=== PATIENT | female | born 1935 | race Caucasian/White ===

== ENCOUNTER 2025-05-17 12:22 | Inpatient (IN) | payer MEDICARE, BC, SELFPAY ==
[2025-05-17] VITALS (14 sets, daily range): BP systolic 70–147; BP diastolic 38–102; PULSE 82–117; RESP 12–28; TEMP 36.3–36.4; O2SAT 98–100; BMI 38.6
--- NOTE | ~2025-05-17 | XR_ITS ---
EXAMINATION: XR chest 1V portable 05/17/2025 15:30 INDICATION: Leukocytosis PROCEDURE: AP portable chest COMPARISON: No prior studies for comparison. FINDINGS: The lungs are clear. The cardiomediastinal silhouette is within normal limits. There are no pleural effusions. There is no pneumothorax suspected. IMPRESSION: 1: NO ACUTE CARDIOPULMONARY DISEASE. Reviewed, dictated and finalized at location O. [facility]
--- NOTE | 2025-05-17 13:39 | ED.GENADULT ---
HPI - General Adult General Chief complaint: GI Bleed Stated complaint: N/V/D Time Seen by Provider: 05/17/25 13:03 History of Present Illness HPI narrative: 89-year-old female presented to the emergency department for evaluation for suspected hematemesis and upper GI bleed causing melena. Patient was thought to have some dark emesis and patient did have some reported melena stool at the care facility. Patient has no prior history of GI bleed. Patient is not on any blood thinners. Patient does have advanced dementia. Patient does complain of some intermittent abdominal pain. Patient had no abdominal tenderness to palpation. family confirms that the patient is DNI DNR. Related Data Home Medications ?Medication ?Instructions ?Recorded ?Confirmed ?Last Taken ?Type acetaminophen 325 mg capsule 650 mg PO Q6H PRN pain 05/17/25 05/17/25 Unknown History acetaminophen 650 mg 650 mg PO BID 05/17/25 05/17/25 05/17/25 History tablet,extended release (8 Hour Pain Reliever) amlodipine 5 mg tablet 5 mg PO DAILY 05/17/25 05/17/25 05/17/25 History aspirin 81 mg capsule 81 mg PO DAILY 05/17/25 05/17/25 05/17/25 History bumetanide 0.5 mg tablet 0.5 mg PO DAILY 05/17/25 05/17/25 05/17/25 History calcium carbonate (Calcium 600) 600 mg PO BID 05/17/25 05/17/25 05/16/25 History cetirizine 10 mg tablet (All Day 10 mg PO DAILY 05/17/25 05/17/25 05/17/25 History Allergy (cetirizine)) cyanocobalamin (vitamin B-12) 500 500 mcg PO DAILY 05/17/25 05/17/25 05/17/25 History mcg tablet (B-12 DOTS) ergocalciferol (vitamin D2) 1,250 1,250 mcg PO WEEKLY 05/17/25 05/17/25 Unknown History mcg (50,000 unit) capsule levetiracetam 500 mg tablet 500 mg PO BID 05/17/25 05/17/25 05/17/25 History (Keppra) loperamide 2 mg tablet 2 mg PO Q3H PRN loose stool 05/17/25 05/17/25 Unknown History (Anti-Diarrheal (loperamide)) meclizine 12.5 mg tablet 12.5 mg PO BID 05/17/25 05/17/25 05/17/25 History meloxicam 15 mg tablet 15 mg PO DAILY 05/17/25 05/17/25 05/17/25 History metoprolol succinate 25 mg 25 mg PO BID 05/17/25 05/17/25 05/17/25 History tablet,extended release 24 hr nystatin 100,000 unit/gram topical 1 applic topical BID 05/17/25 05/17/25 Unknown History powder (Nystop) ondansetron 4 mg disintegrating 4 mg PO Q6H PRN nausea and vomiting 05/17/25 05/17/25 Unknown History tablet potassium chloride 10 mEq 20 meq PO DAILY 05/17/25 05/17/25 05/17/25 History capsule,extended release simvastatin 10 mg tablet 10 mg PO HS 05/17/25 05/17/25 05/16/25 History Allergies Allergy/AdvReac Type Severity Reaction Status Date / Time Penicillins Allergy Intermediate Unknown Verified 05/17/25 17:35 phenytoin Allergy Unknown Unknown Verified 05/17/25 17:35 propoxyphene Allergy Unknown Unknown Verified 05/17/25 17:35 Review of Systems Review of Systems: All systems reviewed & are unremarkable except as noted in HPI and below PMFSH Social History Social History Smoking status: Never smoker Alcohol intake: former Substance use: former Spiritual care concerns: Yes (Orthodox/Any Worder) Exam Narrative: APPEARANCE: Well appearing, no pain, no distress, well-nourished. HEAD: normocephalic, atraumatic. EYES: PERRLA/EOMI, conjunctivae clear. NOSE: Normal no drainage EARS:TMS clear with good light reflex. THROAT: Pharynx clear, no exudate. NECK: Supple. No adenopathy, no masses. RESPIRATORY: Airway patent, respirations nonlabored. Clear to auscultation bilaterally, no rales, rhonchi, wheezing. CARDIOVASCULAR: Regular rate and rhythm without murmurs rubs or gallops. ABDOMINAL: Soft, nontender, nondistended, normal bowel sounds MUSCULOSKELETAL: Moves all extremities. Strength/ROM intact, No edema, No calf tenderness. NEURO: Alert. Cranial nerves II through XII intact. Good gait. Good coordination SKIN: Warm, dry. Normal Color rectal exam: Hemoccult positive Course Vital Signs Vital signs: Vital Signs Temperature 97.6 F 05/17/25 12:20 Pulse Rate 82 05/17/25 12:20 Respiratory Rate 20 05/17/25 12:20 Blood Pressure 116/61 05/17/25 12:20 Pulse Oximetry 100 05/17/25 12:20 Oxygen Delivery Room Air 05/17/25 12:20 Temperature 97.6 F 05/17/25 12:20 Pulse Rate 111 H 05/17/25 18:31 Respiratory Rate 21 H 05/17/25 18:31 Blood Pressure 102/38 L 05/17/25 16:40 Pulse Oximetry 98 05/17/25 18:31 Oxygen Delivery Room Air 05/17/25 18:31 MDM MDM Narrative Medical decision making narrative: 89-year-old female presented emergency department for evaluation for work for did hematemesis and melena stool. Patient was Hemoccult positive and did have dark tarry stool on exam. Family states the patient is DNI DNR. Family declined a CT scan to look for active extravasation. They felt that the CT scan would be too stressful on the patient. Patient is family is unsure if they would want to transfuse the patient if she had a low hemoglobin. And family does not think that they would pursue endoscopy. after further discussion family states they do not wish to pursue endoscopy. They do not wish to pursue a transfusion if needed. They felt if the patient did worsen overnight and had worsening bleeding or worsening vitals or worsening hemoglobin that they would pursue comfort care. At this time patient will be treated with IV Protonix. I did discuss the case with GI and since no endoscopy is anticipated he stated he will not need to be consult at this point. I will discuss the case with the hospitalist and they will consult GI as needed. Differential Diagnosis Differential Diagnosis: upper GI bleed, lower GI bleed, anemia, colitis, gastritis, diverticulitis Lab Data MDM Lab Attestation statement: I personally reviewed the patient's lab results. 05/17/25 18:13 05/17/25 13:30 Labs: Lab Results 05/17/25 Range/Units 13:30 WBC 14.3 H (4.5-10.0) K/mm3 RBC 3.24 L (4.2-5.4) M/mm3 Hgb 9.0 L (12.0-15.0) g/dL Hct 29.4 L (37.0-47.0) % MCV 90.7 (80-100) fl MCH 27.8 (26-34) pg MCHC 30.6 L (32-36) g/dl RDW 17.0 H (11.5-14.5) % Plt Count 287 (150-375) k/mm3 MPV 10.0 (7.4-10.4) fl Immature Gran % (Auto) 0.9 H (0-0.5) % Neut % (Auto) 76.3 H (45.5-73.1) % Lymph % (Auto) 14.9 L (18.3-44.2) % Kimball % (Auto) 7.2 (2.6-8.5) % Eos % (Auto) 0.4 (0-4.4) % Baso % (Auto) 0.3 (0.2-1.2) % Lymph # (Auto) 2.13 (0.9-3.2) K/mm3 Kimball # (Auto) 1.0 H (0.1-0.6) K/mm3 Eos # (Auto) 0.1 (0-0.3) K/mm3 Baso # (Auto) 0.1 (0.0-0.1) K/mm3 Abs Immat Gran (auto) 0.13 H (0.00-0.031) K/mm3 Absolute Neuts (auto) 10.9 H (1.3-6.7) K/mm3 Absolute Nucleated RBC 0.000 (0.0-0.012) K/mm3 Nucleated RBC % 0.0 (0.0-0.2) % PT 15.7 H (11.1-14.7) Seconds INR 1.3 APTT 26.0 (22.3-36.8) Seconds Sodium 139 (137-145) mmol/L Potassium 5.2 H (3.4-5.0) mmol/L Chloride 108 H (98-107) mmol/L Carbon Dioxide 25 (22-30) mmol/L Anion Gap 6 (4-12) mmol/L BUN 69 H (7-17) mg/dL Creatinine 1.09 H (0.7-1.0) mg/dL Estim Creat Clear Calc 40 ml/min Estimated GFR 47 L (59 - ) Glucose 120 H (65-110) mg/dL Calcium 9.2 (8.4-10.2) mg/dL Total Bilirubin 0.6 (0.2-1.3) mg/dL AST 20 (14-36) U/L ALT 13 (6-35) U/L Alkaline Phosphatase 66 (38-126) U/L Total Protein 6.0 L (6.3-8.2) g/dL Albumin 3.3 L (3.5-5.1) g/dL Blood Type O Positive Antibody Screen Negative Imaging Data Radiologist's impression: ITS Impressions Chest X-Ray 05/17/25 15:33 IMPRESSION: 1: NO ACUTE CARDIOPULMONARY DISEASE. Discharge Plan Discharge Clinical Impression: GI bleed Patient Disposition: Still a Patient Condition: Serious
[2025-05-17 13:49] LABS: Hematocrit 29.4 % (37.0-47.0); Hemoglobin 9.0 g/dL (12.0-15.0); Immature Granulocyte Percent A 0.9 % (0-0.5); Lymphocytes Absolute Auto 2.13 K/mm3 (0.9-3.2); Mean Corpuscular HGB Conc 30.6 g/dl (32-36); Mean Corpuscular Hemoglobin 27.8 pg (26-34); Mean Corpuscular Volume 90.7 fl (80-100); Nucleated Red Blood Cells Absolute Auto 0.000 K/mm3 (0.0-0.012); Nucleated Red Blood Cells Perc 0.0 % (0.0-0.2); Platelet Count Result 287 k/mm3 (150-375); Red Blood Count 3.24 M/mm3 (4.2-5.4); White Blood Count 14.3 K/mm3 (4.5-10.0)
[2025-05-17 14:03] LABS: INR 1.3; Partial Thromboplastin Time 26.0 Seconds (22.3-36.8); Prothrombin Time 15.7 Seconds (11.1-14.7)
[2025-05-17 14:20] LABS: Alanine Aminotransferase 13 U/L (6-35); Albumin Level 3.3 g/dL (3.5-5.1); Alkaline Phosphatase 66 U/L (38-126); Anion Gap 6 mmol/L (4-12); Aspartate Amino Transferase 20 U/L (14-36); Bilirubin,Total 0.6 mg/dL (0.2-1.3); Blood Urea Nitrogen 69 mg/dL (7-17); Calcium 9.2 mg/dL (8.4-10.2); Carbon Dioxide 25 mmol/L (22-30); Chloride 108 mmol/L (98-107); Estimated CRCL calculation 40 ml/min; Estimated Glomerular Filt Rate 47; Glucose 120 mg/dL (65-110); Potassium 5.2 mmol/L (3.4-5.0); Sodium 139 mmol/L (137-145); Total Protein 6.0 g/dL (6.3-8.2)
[2025-05-17] MEDS: PANTOPRAZOLE SODIUM IV 40 MG VIAL IV PUSH ×2 (14:38→21:17)
--- OUTSIDE RECORDS SUMMARY | 2025-05-17 14:55 | XMS_ITS ---
Author Name Auto Generated, Auto Generated Organization [facility] Address [address] [place] [address] Care Team Providers Care Quality Control Director Name Role Phone León Sawyer Primary Physician [phone] Allergies and Intolerances Name Onset Reaction Severity penicillin 2016-03-23 01:18:00 Darvon 2016-03-23 01:18:00 Darvocet-N 2016-03-23 01:18:00 Dilantin 2016-03-23 01:18:00 Care Team Name Role NPI Start Date León Sawyer Primary Physician [phone] 00:00:00 Encounters Admissions Program Name Primary Diagnosis Admission Date Discharg e Date Assisted Living Area Metabolic encephalopathy 09:30:00 [facility] 2024-10-14 00:00:00 2024-12-03 22:00:00 [facility] 2025-04-06 00:00:00 Past Medical History Active Concerns Problem Code Start Date End Date Essential (primary) hypertension Essential (primary) hypertension 2016-03-22 00:00:00 2020-12-22 00:00:00 Unspecified dementia, unspecified severity, without behavioral disturbance, psychotic disturbance, mood disturbance, and anxiety Unspecified dementia, unspecified severity, without behavioral disturbance, psychotic disturbance, mood disturbance, and anxiety 2016-03-22 00:00:00 2023-05-08 00:00:00 Weakness Weakness 2016-04-24 00:00:00 2020-12-22 00:00:00 Epidemic vertigo Epidemic vertigo 2016-03-22 00:00:00 2016-03-22 00:00:00 Other seizures Other seizures 2016-03-22 00:00:00 2016-03-22 00:00:00 Chronic atrial fibrillation Chronic atrial fibri llation 2016-03-22 00:00:00 2019-02-23 00:00:00 Anxiety disorder, unspecified Anxiety disorder, unspecified 2016-03-22 00:00:00 2023-01-10 00:00:00 Hyperlipidemia, unspecified Hyperlipidemia, unsp ecified 2016-03-22 00:00:00 Unspecified osteoarthritis, unspecified site Unspecified osteoarthritis, unspecified site 2016-03-22 00:00:00 2020-12-22 00:00:00 Vitamin D deficiency, unspecified Vitamin D deficiency, unspecified 2016-03-22 00:00:00 Difficulty in walking, not elsewhere classified Difficulty in walking, not elsewhere classified 2016-04-27 00:00:00 2020-12-22 00:00:00 Cognitive communication deficit Cognitive communication deficit 2016-04-24 00:00:00 2020-12-22 00:00:00 Unspecified symptoms and signs involving cognitive functions and awareness Unspecified symptoms and signs involving cognitive functions and awareness 2016-04-24 00:00:00 2020-12-22 00:00:00 Asymptomatic varicose veins of unspecified lower extremity Asymptomatic varicose veins of unspecified lower extremity 2016-03-22 00:00:00 2020-12-22 00:00:00 [facility] (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 2016-03-22 00:00:00 Benign paroxysmal vertigo, unspecified ear Benign paroxysmal vertigo, unspecified ear 2016-03-22 00:00:00 Epilepsy, unspecified, not intractable, without status epilepticus Epilepsy, unspecified, not intractable, without status epilepticus 2016-03-22 00:00:00 Benign neoplasm of meninges, unspecified Benign neoplasm of meninges, unspecified 2016-03-22 00:00:00 Ventricular tachycardia Ventricular tachycardia 2016-03-22 00:00:00 2020-12-22 00:00:00 Repeated falls Repeated falls 2016-03-22 00:00:00 2020-12-22 00:00:00 Chronic atrial fibrillation, unspecified Chronic atrial fibrillation, unspecified 2019-02-24 00:00:00 2020-12-22 00:00:00 Encounter for immunization Encounter for immuniz ation 2019-03-13 00:00:00 2020-12-22 00:00:00 Supraventricular tachycardia Supraventricular tachycardia 2016-03-22 00:00:00 2020-12-22 00:00:00 Acute sinusitis, unspecified Acute sinusitis, unspecified 2019-07-30 00:00:00 2020-12-22 00:00:00 Other seasonal allergic rhinitis Other seasonal allergic rhinitis 2019-07-30 00:00:00 Generalized anxiety disorder Generalized anxiety disorder 2016-03-22 00:00:00 2025-04-27 00:00:00 Other persistent atrial fibrillation Other persistent atrial fibrillation 2019-02-24 00:00:00 Allergic rhinitis, unspecified Allergic rhinitis, unspecified 2016-03-22 00:00:00 2020-12-22 00:00:00 Localized edema Localized edema 2016-03-22 00:00:00 2020-12-22 00:00:00 Venous insufficiency (chronic) (peripheral) Venous insufficiency (chronic) (peripheral) 2016-03-22 00:00:00 Asymptomatic varicose veins of bilateral lower extremities Asymptomatic varicose veins of bilateral lower extremities 2016-03-22 00:00:00 Dysuria Dysuria 2016-03-22 00:00:00 2020-12-22 00:00:00 COVID-19 COVID-19 2019-12-15 00:00:00 2020-09-30 00:00:00 Contact with and (suspected) exposure to other viral communicable diseases Contact with and (suspected) exposure to other viral communicable diseases 2019-11-24 00:00:00 2020-12-22 00:00:00 Personal history of COVID-19 Personal history of COVID-19 2020-05-27 00:00:00 Hypokalemia Hypokalemia 2020-09-29 00:00:00 Chronic kidney disease, stage 3a Chronic kidney disease, stage 3a 2020-02-25 00:00:00 Deficiency of other specified B group vitamins Deficiency of other specified B group vitamins 2016-03-22 00:00:00 Adverse effect of unspecified drugs, medicaments and biological substances, subsequent encounter Adverse effect of unspecified drugs, medicaments and biological substances, subsequent encounter 2016-03-22 00:00:00 Primary generalized (osteo)arthritis Primary generalized (osteo)arthritis 2016-03-22 00:00:00 Hypertensive chronic kidney disease 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, or unspecified chronic kidney disease Hypertensive chronic kidney disease 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, or unspecified chronic kidney disease 2016-03-22 00:00:00 2021-12-25 00:00:00 Hypertensive heart and chronic kidney disease without heart failure, 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, or unspecified chronic kidney disease Hypertensive heart and chronic kidney disease without heart failure, 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, or unspecified chronic kidney disease 2016-03-22 00:00:00 Hypocalcemia Hypocalcemia 2016-03-22 00:00:00 Other disorders of plasma-protein metabolism, 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, not elsewhere classified 2016-03-22 00:00:00 Anemia, unspecified Anemia, unspecified 00:00:00 Unsteadiness on feet Unsteadiness on feet 02-15 00:00:00 2024-02-17 00:00:00 COVID-19 COVID-19 2023-05-04 00:00:00 2024-02-17 00:00:00 Unspecified dementia, unspecified severity, with anxiety Unspecified dementia, unspecified severity, with anxiety 2022-02-24 00:00:00 Metabolic encephalopathy Metabolic encephalopath y 2016-03-22 00:00:00 Impetigo, unspecified Impetigo, unspecified 2023 00:00:00 Localized edema Localized edema 2024-04-18 00:00:00 Immunizations Name Date Status ELVIE 2025-03-16 05:00:00 Completed NMEXSPIKE 2025-03-17 05:00:00 Completed Medications Medication Instructions Start Date End Date ALPRAZolam 0.5 mg tablet 0.5 mg TABLET O ral PRN 3 Times Daily for 14 Days Indication: Anxiety 2024-05-20 22:00:00 2024-06-03 21:59:00 ondansetron 4 mg disintegrating tablet 4mg TABLET,DISINTEGRATING Oral PRN Every 6 Hours Indication: nausea/vomiting 2024-06-25 16:00:00 Anti-Diarrheal (loperamide) 2 mg tablet 2mg TABLET Oral PRN (Max 8 Doses) Indication: diarrhea 2024-06-25 16:00:00 bumetanide 0.5 mg tablet 0.5 mg TABLET O ral 1 Time Daily Indication: CHF/edema 2024-08-27 20:47:00 furosemide 20 mg tablet 20mg TABLET Oral 1 Time Daily for 5 Days Indication: elevated BNP 2024-09-30 05:00:00 2024 04:59:00 Nystop 100,000 unit/gram topical powder DIRECTED POWDER (GRAM) Topical 2 Times Daily Indication: redness apply to red areas under breasts and abdominal folds BID 2024-12-28 12:26:00 furosemide 20 mg tablet 20 mg TABLET Ora l 1 Time Daily for 10 Days Indication: edema 2025-01-26 19:51:00 2025-02-05 19:50:00 Bion Tears (PF) 0.1 %-0.3 % drops in a dropperette 1 drop 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, 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 4 Times Daily for 7 Days Indication: eye irritation 2025-02-04 12:00:00 2025-02-11 11:59:00 acetaminophen 325 mg tablet 2 TABLETS TA BLET Oral PRN Every 4 Hours Indication: pain per standing ordersdo not exceed more than 4000mg in any 24 hour period 2025-02-15 12:00:00 Problems Active Concerns Problem Code Start Date End Date Text Hyperlipidemia, unspecified Hyperlipidemia, unspecified 2016-03-22 00:00:00 Vitamin D deficiency, unspecified Vitamin D deficiency, unspecified 2016-03-22 00:00:00 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 [facility] (current) use of aspirin 2016-03-22 00:00:00 Benign paroxysmal vertigo, unspecified ear Benign paroxysmal vertigo, unspecified ear 2016-03-22 00:00:00 Epilepsy, unspecified, not intractable, without status epilepticus Epilepsy, unspecified, not intractable, without status epilepticus 2016-03-22 00:00:00 Benign neoplasm of meninges, unspecified Benign neoplasm of meninges, unspecified 2016-03-22 00:00:00 Other seasonal allergic rhinitis Other seasonal allergic rhinitis 2019-07-30 00:00:00 Generalized anxiety disorder Generalized anxiety disorder 2016-03-22 00:00:00 2025-04-27 00:00:00 Other persistent atrial fibrillation Other persistent atrial fibrillation 2019-02-24 00:00:00 Venous insufficiency (chronic) (peripheral) Venous insufficiency (chronic) (peripheral) 2016-03-22 00:00:00 Asymptomatic varicose veins of bilateral lower extremities Asymptomatic varicose veins of bilateral lower extremities 2016-03-22 00:00:00 Personal history of COVID-19 Personal history of COVID-19 2020-05-27 00:00:00 Hypokalemia Hypokalemia 2020-09-29 00:00:00 Chronic kidney disease, stage 3a Chronic kidney disease, stage 3a 2020-02-25 00:00:00 Deficiency of other specified B group vitamins Deficiency of other specified B group vitamins 2016-03-22 00:00:00 Adverse effect of unspecified drugs, medicaments and biological substances, subsequent encounter Adverse effect of unspecified drugs, medicaments and biological substances, subsequent encounter 2016-03-22 00:00:00 Primary generalized (osteo)arthritis Primary generalized (osteo)arthritis 2016-03-22 00:00:00 Hypertensive heart and chronic kidney disease without heart failure, 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, or unspecified chronic kidney disease Hypertensive heart and chronic kidney disease without heart failure, 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, or unspecified chronic kidney disease 2016-03-22 00:00:00 Hypocalcemia Hypocalcemia 2016-03-22 00:00:00 Other disorders of plasma-protein metabolism, 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, not elsewhere classified 2016-03-22 00:00:00 Anemia, unspecified Anemia, unspecified 00:00:00 Unspecified dementia, unspecified severity, with anxiety Unspecified dementia, unspecified severity, with anxiety 2022-02-24 00:00:00 Metabolic encephalopathy Metabolic encephalopath y 2016-03-22 00:00:00 Impetigo, unspecified Impetigo, unspecified 2023 00:00:00 Localized edema Localized edema 2024-04-18 00:00:00 Other abnormalities of gait and mobility Other abnormalities of gait and mobility 2024-10-14 00:00:00 Unsteadiness on feet Unsteadiness on feet 10-14 00:00:00 Weakness Weakness 2024-10-14 00:00:00 Localized swelling, mass and lump, left upper limb Localized swelling, mass and lump, left upper limb 2025-01-27 00:00:00 Other symptoms and signs involving the musculoskeletal system Other symptoms and signs involving the musculoskeletal system 2025-04-06 00:00:00 Pain in left knee Pain in left knee 2025-04-06 00:00:00 Muscle weakness (generalized) Muscle weakness (generalized) 2025-04-06 00:00:00 Other fatigue Other fatigue 2025-04-06 00:00:00 Need for assistance with personal care Need for assistance with personal care 2025-04-06 00:00:00 Social History Observation Description Date Sex Female 1935 00:00 :00 Sex Female Vital Signs Vital Sign Measurement Date Systolic blood pressure 163.0 mm[Hg] 18:56:04 Diastolic blood pressure 80.0 mm[Hg] 2025-04 18:56:04 Heart Rate 70.0 /min 2025-05-16 00:56 :04 Systolic blood pressure 130.0 mm[Hg] 10:50:40 Diastolic blood pressure 72.0 mm[Hg] 2025-04 10:50:40 Heart Rate 64.0 /min 2025-05-15 16:50 :40 Systolic blood pressure 128.0 mm[Hg] 20:38:00 Diastolic blood pressure 70.0 mm[Hg] 2025-04 20:38:00 Heart Rate 88.0 /min 2025-05-15 02:38 :00 Systolic blood pressure 125.0 mm[Hg] 10:10:44 Diastolic blood pressure 81.0 mm[Hg] 2025-04 10:10:44 Pulse Oximetry 94.0 % 2025-05-12 10:10 :44 Body weight 246.0 [lb_av] 2025-05-12 16:10 :44 Heart Rate 58.0 /min 2025-05-12 16:10 :44 Body temperature 96.9 [degF] 2025-05-12 16:1 0:44 Respiratory rate 16.0 /min 2025-05-12 16:1 0:44 Systolic blood pressure 137.0 mm[Hg] 11:35:07 Diastolic blood pressure 74.0 mm[Hg] 2025-04 11:35:07 Heart Rate 68.0 /min 2025-05-07 17:35 :07 Systolic blood pressure 113.0 mm[Hg] 19:04:06 Diastolic blood pressure 60.0 mm[Hg] 2025-04 19:04:06 Heart Rate 72.0 /min 2025-05-01 01:04 :06 Systolic blood pressure 114.0 mm[Hg] 10:49:09 Diastolic blood pressure 62.0 mm[Hg] 2025-04 10:49:09 Heart Rate 75.0 /min 2025-04-30 16:49 :09 Systolic blood pressure 152.0 mm[Hg] 20:10:21 Diastolic blood pressure 81.0 mm[Hg] 2025-04 20:10:21 Pulse Oximetry 97.0 % 2025-04-27 20:10 :21 Body weight 245.0 [lb_av] 2025-04-28 02:10 :21 Heart Rate 66.0 /min 2025-04-28 02:10 :21 Body temperature 97.4 [degF] 2025-04-28 02:1 0:21 Respiratory rate 18.0 /min 2025-04-28 02:1 0:21 Body height 66.0 [in_i] 2025-04-28 00:34 :18 Systolic blood pressure 144.0 mm[Hg] 17:27:02 Diastolic blood pressure 62.0 mm[Hg] 2025-03 17:27:02 Heart Rate 62.0 /min 2025-04-23 23:27 :02 Systolic blood pressure 150.0 mm[Hg] 18:06:10 Diastolic blood pressure 82.0 mm[Hg] 2025-03 18:06:10 Heart Rate 72.0 /min 2025-04-17 00:06 :10 Systolic blood pressure 129.0 mm[Hg] 18:25:25 Diastolic blood pressure 84.0 mm[Hg] 2025-03 18:25:25 Pulse Oximetry 92.0 % 2025-04-11 18:25 :25 Body weight 239.6 [lb_av] 2025-04-12 00:25 :25 Heart Rate 63.0 /min 2025-04-12 00:25 :25 Body temperature 98.2 [degF] 2025-04-12 00:2 5:25 Respiratory rate 18.0 /min 2025-04-12 00:2 5:25 Systolic blood pressure 134.0 mm[Hg] 18:17:12 Diastolic blood pressure 78.0 mm[Hg] 2025-03 18:17:12 Heart Rate 66.0 /min 2025-04-10 00:17 :12 Systolic blood pressure 143.0 mm[Hg] 12:17:59 Diastolic blood pressure 71.0 mm[Hg] 2025-03 12:17:59 Heart Rate 73.0 /min 2025-04-09 18:17 :59 Systolic blood pressure 139.0 mm[Hg] 17:58:16 Diastolic blood pressure 75.0 mm[Hg] 2025-03 17:58:16 Heart Rate 68.0 /min 2025-04-02 23:58 :16 Systolic blood pressure 129.0 mm[Hg] 10:34:42 Diastolic blood pressure 64.0 mm[Hg] 2025-03 10:34:42 Heart Rate 67.0 /min 2025-04-02 16:34 :42 Systolic blood pressure 108.0 mm[Hg] 20:22:13 Diastolic blood pressure 61.0 mm[Hg] 2025-03 20:22:13 Heart Rate 69.0 /min 2025-03-30 02:22 :13 Systolic blood pressure 137.0 mm[Hg] 18:53:22 Diastolic blood pressure 69.0 mm[Hg] 2025-03 18:53:22 Pulse Oximetry 96.0 % 2025-03-28 18:53 :22 Body weight 241.0 [lb_av] 2025-03-29 00:53 :22 Heart Rate 62.0 /min 2025-03-29 00:53 :22 Body temperature 97.0 [degF] 2025-03-29 00:5 3:22 Respiratory rate 18.0 /min 2025-03-29 00:5 3:22 Systolic blood pressure 108.0 mm[Hg] 20:22:26 Diastolic blood pressure 67.0 mm[Hg] 2025-02 20:22:26 Heart Rate 70.0 /min 2025-03-27 01:22 :26 Systolic blood pressure 155.0 mm[Hg] 17:47:51 Diastolic blood pressure 78.0 mm[Hg] 2025-02 17:47:51 Heart Rate 63.0 /min 2025-03-19 22:47 :51 Systolic blood pressure 157.0 mm[Hg] 11:07:56 Diastolic blood pressure 82.0 mm[Hg] 2025-02 11:07:56 Heart Rate 64.0 /min 2025-03-19 16:07 :56 Systolic blood pressure 143.0 mm[Hg] 17:38:26 Diastolic blood pressure 82.0 mm[Hg] 2025-02 17:38:26 Heart Rate 73.0 /min 2025-03-12 22:38 :26 Systolic blood pressure 118.0 mm[Hg] 10:07:41 Diastolic blood pressure 65.0 mm[Hg] 2025-02 10:07:41 Heart Rate 71.0 /min 2025-03-12 15:07 :41 Systolic blood pressure 149.0 mm[Hg] 18:54:41 Diastolic blood pressure 80.0 mm[Hg] 2025-02 18:54:41 Pulse Oximetry 97.0 % 2025-03-11 18:54 :41 Body weight 228.0 [lb_av] 2025-03-11 23:54 :41 Heart Rate 78.0 /min 2025-03-11 23:54 :41 Body temperature 97.8 [degF] 2025-03-11 23:5 4:41 Respiratory rate 20.0 /min 2025-03-11 23:5 4:41 Systolic blood pressure 125.0 mm[Hg] 11:07:29 Diastolic blood pressure 62.0 mm[Hg] 2025-02 11:07:29 Heart Rate 70.0 /min 2025-03-05 16:07 :29 Systolic blood pressure 133.0 mm[Hg] 17:23:49 Diastolic blood pressure 72.0 mm[Hg] 2025-02 17:23:49 Heart Rate 65.0 /min 2025-02-26 22:23 :49 Heart Rate 71.0 /min 2025-02-26 13:29 :05 Systolic blood pressure 118.0 mm[Hg] 18:33:12 Diastolic blood pressure 61.0 mm[Hg] 2025-02 18:33:12 Pulse Oximetry 94.0 % 2025-02-25 18:33 :12 Body weight 228.5 [lb_av] 2025-02-25 23:33 :12 Heart Rate 64.0 /min 2025-02-25 23:33 :12 Body temperature 97.5 [degF] 2025-02-25 23:3 3:12 Respiratory rate 18.0 /min 2025-02-25 23:3 3:12 Systolic blood pressure 112.0 mm[Hg] 09:11:43 Diastolic blood pressure 57.0 mm[Hg] 2025-01 09:11:43 Heart Rate 66.0 /min 2025-02-12 14:11 :43 Systolic blood pressure 139.0 mm[Hg] 16:30:53 Diastolic blood pressure 79.0 mm[Hg] 2025-01 16:30:53 Pulse Oximetry 97.0 % 2025-02-09 16:30 :53 Body weight 227.4 [lb_av] 2025-02-09 21:30 :53 Heart Rate 68.0 /min 2025-02-09 21:30 :53 Body temperature 97.9 [degF] 2025-02-09 21:3 0:53 Respiratory rate 20.0 /min 2025-02-09 21:3 0:53 Body weight 257.4 [lb_av] 2025-02-06 21:23 :24 Systolic blood pressure 145.0 mm[Hg] 18:51:22 Diastolic blood pressure 68.0 mm[Hg] 2025-01 18:51:22 Heart Rate 77.0 /min 2025-02-05 23:51 :22 Systolic blood pressure 122.0 mm[Hg] 12:50:14 Diastolic blood pressure 63.0 mm[Hg] 2025-01 12:50:14 Heart Rate 60.0 /min 2025-02-05 17:50 :14 Systolic blood pressure 135.0 mm[Hg] 17:10:50 Diastolic blood pressure 66.0 mm[Hg] 2025-01 17:10:50 Heart Rate 50.0 /min 2025-01-29 22:10 :50 Systolic blood pressure 122.0 mm[Hg] 11:32:21 Diastolic blood pressure 58.0 mm[Hg] 2025-01 11:32:21 Heart Rate 65.0 /min 2025-01-29 16:32 :21 Body weight 244.2 [lb_av] 2025-01-27 18:44 :30 Systolic blood pressure 134.0 mm[Hg] 14:12:30 Diastolic blood pressure 74.0 mm[Hg] 2025-01 14:12:30 Pulse Oximetry 93.0 % 2025-01-26 14:12 :30 Body weight 241.4 [lb_av] 2025-01-26 19:12 :30 Heart Rate 74.0 /min 2025-01-26 19:12 :30 Body temperature 98.2 [degF] 2025-01-26 19:1 2:30 Respiratory rate 20.0 /min 2025-01-26 19:1 2:30 Heart Rate 69.0 /min 2025-01-24 22:14 :10 Systolic blood pressure 122.0 mm[Hg] 19:49:50 Diastolic blood pressure 63.0 mm[Hg] 2024-12 19:49:50 Heart Rate 70.0 /min 2025-01-16 00:49 :50 Systolic blood pressure 127.0 mm[Hg] 11:33:38 Diastolic blood pressure 70.0 mm[Hg] 2024-12 11:33:38 Heart Rate 66.0 /min 2025-01-15 16:33 :38 Systolic blood pressure 122.0 mm[Hg] 19:26:06 Diastolic blood pressure 67.0 mm[Hg] 2024-12 19:26:06 Heart Rate 69.0 /min 2025-01-09 00:26 :06 Systolic blood pressure 132.0 mm[Hg] 17:49:28 Diastolic blood pressure 77.0 mm[Hg] 2024-12 17:49:28 Heart Rate 70.0 /min 2025-01-01 22:49 :28 Systolic blood pressure 129.0 mm[Hg] 09:24:36 Diastolic blood pressure 70.0 mm[Hg] 2024-12 09:24:36 Heart Rate 82.0 /min 2025-01-01 14:24 :36 Systolic blood pressure 102.0 mm[Hg] 14:58:58 Diastolic blood pressure 47.0 mm[Hg] 2024-12 14:58:58 Pulse Oximetry 98.0 % 2024-12-26 14:58 :58 Body weight 230.6 [lb_av] 2024-12-26 19:58 :58 Heart Rate 68.0 /min 2024-12-26 19:58 :58 Body temperature 97.1 [degF] 2024-12-26 19:5 8:58 Respiratory rate 18.0 /min 2024-12-26 19:5 8:58 Systolic blood pressure 122.0 mm[Hg] 11:30:38 Diastolic blood pressure 64.0 mm[Hg] 2024-12 11:30:38 Heart Rate 69.0 /min 2024-12-25 16:30 :38 Systolic blood pressure 127.0 mm[Hg] 18:42:02 Diastolic blood pressure 70.0 mm[Hg] 2024-11 18:42:02 Heart Rate 77.0 /min 2024-12-18 23:42 :02 Systolic blood pressure 116.0 mm[Hg] 19:19:03 Diastolic blood pressure 59.0 mm[Hg] 2024-11 19:19:03 Heart Rate 77.0 /min 2024-12-12 00:19 :03 Systolic blood pressure 107.0 mm[Hg] 10:33:46 Diastolic blood pressure 62.0 mm[Hg] 2024-11 10:33:46 Heart Rate 64.0 /min 2024-12-11 15:33 :46 Systolic blood pressure 114.0 mm[Hg] 09:33:56 Diastolic blood pressure 51.0 mm[Hg] 2024-11 09:33:56 Pulse Oximetry 96.0 % 2024-12-10 09:33 :56 Body weight 224.4 [lb_av] 2024-12-10 14:33 :56 Heart Rate 60.0 /min 2024-12-10 14:33 :56 Body temperature 97.8 [degF] 2024-12-10 14:3 3:56 Respiratory rate 18.0 /min 2024-12-10 14:3 3:56 Systolic blood pressure 135.0 mm[Hg] 17:04:21 Diastolic blood pressure 67.0 mm[Hg] 2024-11 17:04:21 Heart Rate 76.0 /min 2024-12-04 22:04 :21 Systolic blood pressure 137.0 mm[Hg] 17:41:22 Diastolic blood pressure 63.0 mm[Hg] 2024-11 17:41:22 Heart Rate 63.0 /min 2024-11-27 22:41 :22 Systolic blood pressure 125.0 mm[Hg] 10:17:45 Diastolic blood pressure 61.0 mm[Hg] 2024-11 10:17:45 Heart Rate 68.0 /min 2024-11-27 15:17 :45 Systolic blood pressure 129.0 mm[Hg] 16:53:43 Diastolic blood pressure 76.0 mm[Hg] 2024-11 16:53:43 Pulse Oximetry 97.0 % 2024-11-26 16:53 :43 Body weight 225.6 [lb_av] 2024-11-26 21:53 :43 Heart Rate 60.0 /min 2024-11-26 21:53 :43 Body temperature 97.8 [degF] 2024-11-26 21:5 3:43 Respiratory rate 18.0 /min 2024-11-26 21:5 3:43 Systolic blood pressure 130.0 mm[Hg] 17:35:59 Diastolic blood pressure 78.0 mm[Hg] 2024-10 17:35:59 Heart Rate 70.0 /min 2024-11-20 22:35 :59 Systolic blood pressure 111.0 mm[Hg] 08:50:32 Diastolic blood pressure 65.0 mm[Hg] 2024-10 08:50:32 Heart Rate 65.0 /min 2024-11-20 13:50 :32 Systolic blood pressure 124.0 mm[Hg] 17:38:13 Diastolic blood pressure 85.0 mm[Hg] 2024-10 17:38:13 Heart Rate 60.0 /min 2024-11-13 22:38 :13 Systolic blood pressure 109.0 mm[Hg] 10:33:41 Diastolic blood pressure 64.0 mm[Hg] 2024-10 10:33:41 Body weight 219.8 [lb_av] 2024-11-11 12:45 :51 Systolic blood pressure 108.0 mm[Hg] 14:56:06 Diastolic blood pressure 69.0 mm[Hg] 2024-10 14:56:06 Pulse Oximetry 99.0 % 2024-11-10 14:56 :06 Heart Rate 67.0 /min 2024-11-10 19:56 :06 Body temperature 97.7 [degF] 2024-11-10 19:5 6:06 Respiratory rate 18.0 /min 2024-11-10 19:5 6:06 Systolic blood pressure 122.0 mm[Hg] 18:06:55 Diastolic blood pressure 65.0 mm[Hg] 2024-10 18:06:55 Heart Rate 72.0 /min 2024-11-06 23:06 :55 Systolic blood pressure 112.0 mm[Hg] 10:47:24 Diastolic blood pressure 58.0 mm[Hg] 2024-10 10:47:24 Heart Rate 65.0 /min 2024-11-06 15:47 :24 Systolic blood pressure 125.0 mm[Hg] 14:19:43 Diastolic blood pressure 73.0 mm[Hg] 2024-10 14:19:43 Pulse Oximetry 98.0 % 2024-10-26 14:19 :43 Body weight 226.2 [lb_av] 2024-10-26 19:19 :43 Heart Rate 65.0 /min 2024-10-26 19:19 :43 Body temperature 97.5 [degF] 2024-10-26 19:1 9:43 Respiratory rate 18.0 /min 2024-10-26 19:1 9:43 Systolic blood pressure 119.0 mm[Hg] 16:48:09 Diastolic blood pressure 71.0 mm[Hg] 2024-09 16:48:09 Heart Rate 72.0 /min 2024-10-16 21:48 :09 Systolic blood pressure 120.0 mm[Hg] 11:37:20 Diastolic blood pressure 66.0 mm[Hg] 2024-09 11:37:20 Heart Rate 76.0 /min 2024-10-16 16:37 :20 Body weight 222.2 [lb_av] 2024-10-10 17:22 :02 Systolic blood pressure 145.0 mm[Hg] 18:11:39 Diastolic blood pressure 77.0 mm[Hg] 2024-09 18:11:39 Pulse Oximetry 99.0 % 2024-10-09 18:11 :39 Heart Rate 72.0 /min 2024-10-09 23:11 :39 Body temperature 98.0 [degF] 2024-10-09 23:1 1:39 Respiratory rate 16.0 /min 2024-10-09 23:1 1:39 Systolic blood pressure 101.0 mm[Hg] 10:57:53 Diastolic blood pressure 61.0 mm[Hg] 2024-09 10:57:53 Heart Rate 63.0 /min 2024-10-09 15:57 :53 Systolic blood pressure 128.0 mm[Hg] 17:52:04 Diastolic blood pressure 68.0 mm[Hg] 2024-09 17:52:04 Heart Rate 87.0 /min 2024-10-02 22:52 :04 Systolic blood pressure 107.0 mm[Hg] 09:16:52 Diastolic blood pressure 55.0 mm[Hg] 2024-09 09:16:52 Heart Rate 65.0 /min 2024-10-02 14:16 :52 Body weight 220.8 [lb_av] 2024-10-01 15:05 :02 Systolic blood pressure 127.0 mm[Hg] 17:51:39 Diastolic blood pressure 65.0 mm[Hg] 2024-09 17:51:39 Pulse Oximetry 96.0 % 2024-09-25 17:51 :39 Heart Rate 80.0 /min 2024-09-25 22:51 :39 Body temperature 98.2 [degF] 2024-09-25 22:5 1:39 Respiratory rate 20.0 /min 2024-09-25 22:5 1:39 Systolic blood pressure 122.0 mm[Hg] 08:39:44 Diastolic blood pressure 66.0 mm[Hg] 2024-09 08:39:44 Systolic blood pressure 122.0 mm[Hg] 19:29:25 Diastolic blood pressure 66.0 mm[Hg] 2024-08 19:29:25 Heart Rate 71.0 /min 2024-09-20 00:29 :25 Systolic blood pressure 124.0 mm[Hg] 10:40:03 Diastolic blood pressure 62.0 mm[Hg] 2024-08 10:40:03 Heart Rate 71.0 /min 2024-09-19 15:40 :03 Heart Rate 72.0 /min 2024-09-18 23:52 :48 Systolic blood pressure 121.0 mm[Hg] 09:52:26 Diastolic blood pressure 71.0 mm[Hg] 2024-08 09:52:26 Heart Rate 62.0 /min 2024-09-18 14:52 :26 Systolic blood pressure 119.0 mm[Hg] 18:28:31 Diastolic blood pressure 65.0 mm[Hg] 2024-08 18:28:31 Systolic blood pressure 122.0 mm[Hg] 10:54:13 Diastolic blood pressure 61.0 mm[Hg] 2024-08 10:54:13 Heart Rate 70.0 /min 2024-09-11 15:54 :13 Systolic blood pressure 111.0 mm[Hg] 14:14:45 Diastolic blood pressure 55.0 mm[Hg] 2024-08 14:14:45 Pulse Oximetry 96.0 % 2024-09-09 14:14 :45 Body weight 217.0 [lb_av] 2024-09-09 19:14 :45 Heart Rate 78.0 /min 2024-09-09 19:14 :45 Body temperature 97.0 [degF] 2024-09-09 19:1 4:45 Respiratory rate 18.0 /min 2024-09-09 19:1 4:45 Body weight 218.2 [lb_av] 2024-08-29 18:43 :03 Systolic blood pressure 106.0 mm[Hg] 19:24:25 Diastolic blood pressure 65.0 mm[Hg] 2024-08 19:24:25 Heart Rate 71.0 /min 2024-08-29 00:24 :25 Systolic blood pressure 115.0 mm[Hg] 09:16:27 Diastolic blood pressure 60.0 mm[Hg] 2024-08 09:16:27 Heart Rate 67.0 /min 2024-08-28 14:16 :27 Systolic blood pressure 106.0 mm[Hg] 17:49:18 Diastolic blood pressure 59.0 mm[Hg] 2024-08 17:49:18 Pulse Oximetry 97.0 % 2024-08-27 17:49 :18 Heart Rate 75.0 /min 2024-08-27 22:49 :18 Body temperature 97.8 [degF] 2024-08-27 22:4 9:18 Respiratory rate 18.0 /min 2024-08-27 22:4 9:18 Systolic blood pressure 131.0 mm[Hg] 17:31:13 Diastolic blood pressure 69.0 mm[Hg] 2024-07 17:31:13 Heart Rate 72.0 /min 2024-08-21 22:31 :13 Systolic blood pressure 103.0 mm[Hg] 11:06:30 Diastolic blood pressure 65.0 mm[Hg] 2024-07 11:06:30 Heart Rate 79.0 /min 2024-08-21 16:06 :30 Systolic blood pressure 123.0 mm[Hg] 19:36:02 Diastolic blood pressure 68.0 mm[Hg] 2024-07 19:36:02 Heart Rate 96.0 /min 2024-08-15 00:36 :02 Systolic blood pressure 110.0 mm[Hg] 09:08:24 Diastolic blood pressure 63.0 mm[Hg] 2024-07 09:08:24 Systolic blood pressure 129.0 mm[Hg] 17:51:00 Diastolic blood pressure 61.0 mm[Hg] 2024-07 17:51:00 Pulse Oximetry 100.0 % 2024-08-10 17:51 :00 Heart Rate 87.0 /min 2024-08-10 22:51 :00 Body weight 216.2 [lb_av] 2024-08-10 22:51 :00 Body temperature 97.2 [degF] 2024-08-10 22:5 1:00 Respiratory rate 18.0 /min 2024-08-10 22:5 1:00 Systolic blood pressure 117.0 mm[Hg] 17:13:49 Diastolic blood pressure 66.0 mm[Hg] 2024-07 17:13:49 Heart Rate 62.0 /min 2024-08-07 22:13 :49 Systolic blood pressure 112.0 mm[Hg] 19:03:53 Diastolic blood pressure 61.0 mm[Hg] 2024-07 19:03:53 Heart Rate 78.0 /min 2024-08-01 01:03 :53 Systolic blood pressure 119.0 mm[Hg] 11:04:00 Diastolic blood pressure 64.0 mm[Hg] 2024-07 11:04:00 Heart Rate 68.0 /min 2024-07-31 17:04 :00 Systolic blood pressure 141.0 mm[Hg] 16:46:58 Diastolic blood pressure 76.0 mm[Hg] 2024-07 16:46:58 Pulse Oximetry 98.0 % 2024-07-26 16:46 :58 Body weight 213.2 [lb_av] 2024-07-26 22:46 :58 Heart Rate 73.0 /min 2024-07-26 22:46 :58 Body temperature 97.2 [degF] 2024-07-26 22:4 6:58 Respiratory rate 16.0 /min 2024-07-26 22:4 6:58 Systolic blood pressure 99.0 mm[Hg] 17:21:50 Diastolic blood pressure 64.0 mm[Hg] 2024-06 17:21:50 Heart Rate 63.0 /min 2024-07-24 23:21 :50 Systolic blood pressure 117.0 mm[Hg] 09:53:44 Diastolic blood pressure 74.0 mm[Hg] 2024-06 09:53:44 Heart Rate 74.0 /min 2024-07-24 15:53 :44 Systolic blood pressure 128.0 mm[Hg] 17:40:41 Diastolic blood pressure 69.0 mm[Hg] 2024-06 17:40:41 Heart Rate 64.0 /min 2024-07-17 23:40 :41 Systolic blood pressure 132.0 mm[Hg] 12:09:47 Diastolic blood pressure 66.0 mm[Hg] 2024-06 12:09:47 Heart Rate 76.0 /min 2024-07-17 18:09 :47 Systolic blood pressure 125.0 mm[Hg] 15:05:39 Diastolic blood pressure 82.0 mm[Hg] 2024-06 15:05:39 Pulse Oximetry 95.0 % 2024-07-13 15:05 :39 Body weight 219.0 [lb_av] 2024-07-13 21:05 :39 Heart Rate 68.0 /min 2024-07-13 21:05 :39 Body temperature 98.0 [degF] 2024-07-13 21:0 5:39 Respiratory rate 18.0 /min 2024-07-13 21:0 5:39 Systolic blood pressure 141.0 mm[Hg] 17:26:18 Diastolic blood pressure 78.0 mm[Hg] 2024-06 17:26:18 Heart Rate 67.0 /min 2024-07-11 23:26 :18 Systolic blood pressure 106.0 mm[Hg] 18:24:20 Diastolic blood pressure 64.0 mm[Hg] 2024-06 18:24:20 Heart Rate 72.0 /min 2024-07-11 00:24 :20 Systolic blood pressure 143.0 mm[Hg] 17:38:57 Diastolic blood pressure 79.0 mm[Hg] 2024-06 17:38:57 Heart Rate 69.0 /min 2024-07-03 23:38 :57 Systolic blood pressure 122.0 mm[Hg] 11:14:31 Diastolic blood pressure 62.0 mm[Hg] 2024-06 11:14:31 Heart Rate 71.0 /min 2024-07-03 17:14 :31 Systolic blood pressure 114.0 mm[Hg] 15:24:56 Diastolic blood pressure 68.0 mm[Hg] 2024-06 15:24:56 Pulse Oximetry 96.0 % 2024-06-28 15:24 :56 Body weight 218.0 [lb_av] 2024-06-28 21:24 :56 Heart Rate 71.0 /min 2024-06-28 21:24 :56 Body temperature 97.1 [degF] 2024-06-28 21:2 4:56 Respiratory rate 18.0 /min 2024-06-28 21:2 4:56 Systolic blood pressure 127.0 mm[Hg] 18:14:42 Diastolic blood pressure 66.0 mm[Hg] 2024-05 18:14:42 Heart Rate 68.0 /min 2024-06-20 00:14 :42 Systolic blood pressure 112.0 mm[Hg] 11:37:29 Diastolic blood pressure 67.0 mm[Hg] 2024-05 11:37:29 Heart Rate 74.0 /min 2024-06-19 17:37 :29 Systolic blood pressure 132.0 mm[Hg] 18:51:55 Diastolic blood pressure 72.0 mm[Hg] 2024-05 18:51:55 Heart Rate 94.0 /min 2024-06-13 00:51 :55 Systolic blood pressure 117.0 mm[Hg] 11:03:31 Diastolic blood pressure 68.0 mm[Hg] 2024-05 11:03:31 Heart Rate 69.0 /min 2024-06-12 17:03 :31 Systolic blood pressure 146.0 mm[Hg] 14:55:20 Diastolic blood pressure 82.0 mm[Hg] 2024-05 14:55:20 Pulse Oximetry 97.0 % 2024-06-11 14:55 :20 Body weight 221.6 [lb_av] 2024-06-11 20:55 :20 Heart Rate 57.0 /min 2024-06-11 20:55 :20 Body temperature 98.1 [degF] 2024-06-11 20:5 5:20 Respiratory rate 18.0 /min 2024-06-11 20:5 5:20 Systolic blood pressure 114.0 mm[Hg] 18:38:02 Diastolic blood pressure 63.0 mm[Hg] 2024-05 18:38:02 Heart Rate 72.0 /min 2024-06-06 00:38 :02 Systolic blood pressure 120.0 mm[Hg] 11:24:01 Diastolic blood pressure 63.0 mm[Hg] 2024-05 11:24:01 Heart Rate 62.0 /min 2024-06-05 17:24 :01 Systolic blood pressure 142.0 mm[Hg] 12:58:00 Diastolic blood pressure 83.0 mm[Hg] 2024-05 12:58:00 Pulse Oximetry 97.0 % 2024-05-31 12:58 :00 Heart Rate 83.0 /min 2024-05-31 18:58 :00 Body weight 218.8 [lb_av] 2024-05-31 18:58 :00 Body temperature 97.4 [degF] 2024-05-31 18:5 8:00 Respiratory rate 20.0 /min 2024-05-31 18:5 8:00 Body weight 222.0 [lb_av] 2024-05-30 02:05 :08 Systolic blood pressure 131.0 mm[Hg] 17:48:37 Diastolic blood pressure 73.0 mm[Hg] 2024-05 17:48:37 Heart Rate 69.0 /min 2024-05-29 23:48 :37 Systolic blood pressure 137.0 mm[Hg] 10:55:51 Diastolic blood pressure 64.0 mm[Hg] 2024-05 10:55:51 Heart Rate 61.0 /min 2024-05-29 16:55 :51 Systolic blood pressure 124.0 mm[Hg] 17:47:01 Diastolic blood pressure 66.0 mm[Hg] 2024-04 17:47:01 Heart Rate 73.0 /min 2024-05-22 23:47 :01 Systolic blood pressure 124.0 mm[Hg] 11:06:30 Diastolic blood pressure 70.0 mm[Hg] 2024-04 11:06:30 Heart Rate 68.0 /min 2024-05-22 17:06 :30
--- OUTSIDE RECORDS SUMMARY | 2025-05-17 14:56 | XMS_ITS | Encounter Summary ---
Author Organization [employer] Address 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 Name Role Phone Unavailable Primary Care Provider Unavailabl e Encounter Details Date Type Department Care Team (Late st Contact Info) Description 10/09/2017 Lab Requisition [facility] [place] [address] [place] [address] León Sawyer MD [address] [place] [address] Edema Social History Tobacco Use Types Packs/Day Years Used Date Smoking Tobacco: Never Assessed Comments Unknown Sex and Gender Information Value Date Recorded Sex Assigned at Not on file Legal Sex Female 4:51 PM CDT Gender Identity Not on file Sexual Orientation Not on file documented as of this encounter Plan of Treatment Not on file documented as of this encounter Procedures Procedure Name Priority Date/Time Associated Diagnosis Comments LYME ANTIBODY SCREEN W/REFLEX CONFIRMATION Routine 10/09/2017 5:28 AM CDT Edema documented in this encounter Results * LYME ANTIBODY SCREEN W/REFLEX WB (10/09/2017 5:28 AM CDT) LYME ANTIBODY (EIA) Negative Negative 10/10/2017 10:43 PM CDT [facility] Comment: No evidence of antibodies to B. burgdorferi detected. False negative results may occur in recently infected patients (<=2 weeks) due to low or undetectable antibody levels to B. burgdorferi. If recent exposure is suspected, a second sample should be collected and tested in 2-4 weeks. Test Performed by: [facility] [address] [place] [address] Blood Venipuncture / Unknown 10/09/2017 5:28 AM CDT 10/09/2017 8:19 AM CDT us León Sawyer MD CHEMISTRY ORDERABLES Final R esult [facility] documented in this encounter Visit Diagnoses Diagnosis Edema documented in this encounter
--- OUTSIDE RECORDS SUMMARY | 2025-05-17 14:56 | XMS_ITS | Encounter Summary ---
Author Organization [employer] Address [address] [place] [address] Care Team Providers Care Electric Appliance Installer Name Role Phone Unavailable Primary Care Provider Unavailabl e Encounter Details Date Type Department Care Team (Late st Contact Info) Description 12/25/2017 Lab Requisition [facility] [employer] [address] [place] [address] León Sawyer MD [address] [place] [address] Hyperlipidemia; Heart failure (CMS/[facility]) Social History Tobacco Use Types Packs/Day Years [...] Procedure Name Priority Date/Time Associated Diagnosis Comments BRAIN NATRIURETIC PEPTIDE, BNP OR PROBNP Routine 12/25/2017 4:32 AM CDT Heart failure Hyperlipidemia BASIC METABOLIC PANEL Routine 12/25/2017 4:32 AM CDT Heart failure Hyperlipidemia documented in this encounter Results * (ABNORMAL) BRAIN NATRIURETIC PEPTIDE, BNP OR PROBNP (12/25/2017 4:32 AM CDT) PROBNP, N TERMINAL 521(H) <449 pg/mL 12/25/2017 9:51 AM CDT [facility] Comment: Reference values for screening purposes based on airplane navigator's recommendation: Patients less than 75 years: <125 pg/mL Patients 75 years and older: <450 pg/mL Reference values for determination of acute congestive heart failure in dyspneic patients based on PRIDE study (Am J Cardiol 2005;95:948): Patients less than 50 years: <450 pg/mL (Negative predictive value= 99%) Patients 50 years and older: <900 pg/mL (Negative predictive value= 92%) Rule out cutpoint, all ages: <300 pg/mL (Negative predictive value= 99%) Blood Venipuncture / Unknown 12/25/2017 4:32 AM CDT 12/25/2017 8:23 AM CDT León Sawyer MD CHEMISTRY ORDERABLES Final R esult [id number]# [id number] 5 Alia [facility] [place] [id number] * BASIC METABOLIC PANEL (12/25/2017 4:32 AM CDT) SODIUM 140 136 - 145 mmol/L 12/25/2017 9:51 AM T [id number] - [facility] POTASSIUM 4.1 3.5 - 5.0 mmol/L 12/25/2017 9:51 AM T [employer] - [facility] CHLORIDE 104 98 - 107 mmol/L 12/25/2017 9:51 AM T [id number] - . [place] CO2 23 22 - 29 mmol/L 12/25/2017 9:51 AM T [employer] [facility] - . [facility] CALCIUM 9.0 8.6 - 10.2 mg/dL 12/25/2017 9:51 AM T [employer] [facility] - . [facility] BUN 19 8 - 23 mg/dL 12/25/2017 9:51 AM CDT [employer] [facility] - . [facility] CREATININE 0.84 0.51 - 0.95 mg/dL 12/25/2017 9:51 AM T [employer] [facility] Comment: The GFR result is not clinically significant on patients <18 or >70 years of age. GLUCOSE 85 74 - 99 mg/dL 12/25/2017 9:51 AM T [employer] [facility] GFR >60 mL/min/1.7 3 sq meter 12/25/2017 9:51 AM T [employer] [facility] Comment: eGFR has not been validated for use in the elderly (> 70 years of age), women, patients with serious co-morbid conditions, or persons with extremes of body size or muscle mass and should also be interpreted with caution in patients with acute kidney failure, dialysis dependent patients, patients reporting exceptional dietary intake (e.g. vegetarian diet, high protein diets, creatine supplementation), and patients with severe liver disease. Based on National Kidney Disease Education Program If patient is , please refer to the GFR result. GFR, >60 mL/min/1.7 3 sq meter 12/25/2017 9:51 AM CDT [facility] ANION GAP 13 8 - 16 mmol/L 12/25/2017 9:51 AM T [facility] Blood Venipuncture / Unknown 12/25/2017 4:32 AM CDT 12/25/2017 8:23 AM CDT us León Sawyer MD CHEMISTRY ORDERABLES Final R esult [id number] [address] [place] [address] documented in this encounter Visit Diagnoses Diagnosis Hyperlipidemia Other and unspecified hyperlipidemia Heart failure (CMS/HCC) Heart failure, unspecified documented in this encounter
--- OUTSIDE RECORDS SUMMARY | 2025-05-17 14:56 | XMS_ITS | Encounter Summary ---
Author Organization [employer] Address [address] [place] [address] Care Team Providers Care Transonic Engineer Name Role Phone Unavailable Primary Care Provider Unavailabl e Encounter Details Date Type Department Care Team (Late st Contact Info) Description 05/30/2017 Lab Requisition [facility] Services [address] [place] [address] [place] [address] León Sawyer MD [address] [place] [address] Encounter for general adult medical examination without abnormal findings Social History Tobacco Use Types Packs/Day Years [...] Procedure Name Priority Date/Time Associated Diagnosis Comments CBC WITH DIFFERENTIAL Routine 05/30/2017 5:54 AM CERTIFIED MEDICAL DOSIMETRIST Encounter for general adult medical examination without abnormal findings VITAMIN D 25 HYDROXY Routine 05/30/2017 5:54 AM CERTIFIED MEDICAL DOSIMETRIST Encounter for general adult medical examination without abnormal findings TSH Routine 05/30/2017 5:54 AM CERTIFIED MEDICAL DOSIMETRIST Encounter for general adult medical examination without abnormal findings T4 FREE Routine 05/30/2017 5:54 AM CERTIFIED MEDICAL DOSIMETRIST Encounter for general adult medical examination without abnormal findings HEMOGLOBIN A1C Routine 05/30/2017 5:54 AM CERTIFIED MEDICAL DOSIMETRIST Encounter for general adult medical examination without abnormal findings LIPID PANEL Routine 05/30/2017 5:54 AM CERTIFIED MEDICAL DOSIMETRIST Encounter for general adult medical examination without abnormal findings COMPREHENSIVE METABOLIC PANEL Routine 05/30/2017 5:54 AM CERTIFIED MEDICAL DOSIMETRIST Encounter for general adult medical examination without abnormal findings documented in this encounter Results * VITAMIN D 25 HYDROXY (05/30/2017 5:54 AM CERTIFIED MEDICAL DOSIMETRIST) Pathologist [facility] VITAMIN D TOTAL (25OH) 30 30 - 100 ng/mL 05/30/2017 12:03 PM CERTIFIED MEDICAL DOSIMETRIST [facility] [employer] [facility] Blood Venipuncture / Unknown 05/30/2017 5:54 AM CERTIFIED MEDICAL DOSIMETRIST 05/30/2017 11:04 AM CERTIFIED MEDICAL DOSIMETRIST Narrative [facility] LABORATORY [facility] - 05/30/2017 12:03 PM CERTIFIED MEDICAL DOSIMETRIST Interpretive Data Chart: Deficient: 0 - 20 ng/mL Insufficient: 21 - 29 ng/mL Sufficient: 30 - 100 ng/mL Increased Risk of Hypercalciuria: >100 ng/mL Toxic: >150 ng/mL León Sawyer MD CHEMISTRY ORDERABLES Final R esult [facility] CLIA# [id number] [address] [place] [address] * HEMOGLOBIN A1C (05/30/2017 5:54 AM CERTIFIED MEDICAL DOSIMETRIST) [facility] HEMOGLOBIN A1C 5.5 4.0 - 6.0 % 05/30/2017 11:46 AM [facility] LABORATORY [facility] EST. AVG GLUCOSE, A1C 111 mg/dL 05/30/2017 11:46 AM CERTIFIED MEDICAL DOSIMETRIST [facility] [employer] [facility] Blood Venipuncture / Unknown 05/30/2017 5:54 AM CERTIFIED MEDICAL DOSIMETRIST 05/30/2017 11:04 AM CERTIFIED MEDICAL DOSIMETRIST León Sawyer MD CHEMISTRY ORDERABLES Final R esult [facility] CLIA# [id number] [address] [place] [address] * T4 FREE (05/30/2017 5:54 AM CERTIFIED MEDICAL DOSIMETRIST) Pathologist [facility] T4 FREE 0.92 0.90 - 1.70 ng/dL 05/30/2017 12:13 PM [facility] LABORATORY [facility] Blood Venipuncture / Unknown 05/30/2017 5:54 AM CERTIFIED MEDICAL DOSIMETRIST 05/30/2017 11:04 AM CERTIFIED MEDICAL DOSIMETRIST León Sawyer MD CHEMISTRY ORDERABLES Final R esult [facility] CLIA# [id number] [address] [place] [address] * TSH (05/30/2017 5:54 AM CERTIFIED MEDICAL DOSIMETRIST) [facility] TSH 3.35 0.27 - 4.20 uIU/mL 05/30/2017 12:13 PM [facility] [employer] [facility] Blood Venipuncture / Unknown 05/30/2017 5:54 AM CERTIFIED MEDICAL DOSIMETRIST 05/30/2017 11:04 AM CERTIFIED MEDICAL DOSIMETRIST León Sawyer MD CHEMISTRY ORDERABLES Final R esult Performing Organization Address City/[facility]/ZIP Co de Phone Number [facility]# [id number] [address] [place] [address] * (ABNORMAL) LIPID PANEL (05/30/2017 5:54 AM CERTIFIED MEDICAL DOSIMETRIST) Pathologist [facility] CHOLESTEROL 149 <200 mg/dL 05/30/2017 11:47 AM CERTIFIED MEDICAL DOSIMETRIST [employer] LABORATORY [facility] TRIGLYCERIDE 66 <150 mg/dL 05/30/2017 11:47 AM CERTIFIED MEDICAL DOSIMETRIST [employer] LABORATORY [facility] HDL 74(H) 40 - 59 mg/dL 05/30/2017 11:47 AM [facility] LDL CALCULATED 62 <100 mg/dL 05/30/2017 11:47 AM [facility] [employer] LABORATORY [facility] NON-HDL CHOLESTEROL 75 <130 mg/dL 05/30/2017 11:47 AM CERTIFIED MEDICAL DOSIMETRIST [employer] LABORAT[facility] Blood Venipuncture / Unknown 05/30/2017 5:54 AM CERTIFIED MEDICAL DOSIMETRIST 05/30/2017 11:04 AM [facility] [employer] [facility] - 05/30/2017 11:47 AM CERTIFIED MEDICAL DOSIMETRIST TOTAL CHOLESTEROL mg/dL Desirable <200 Borderline high 200-239 High >=240 TRIGLYCERIDES mg/dL Normal <150 Borderline high 150-199 High 200-499 Very high >=500 HDL CHOLESTEROL mg/dL Low <40 Normal 40-59 Desirable >=60 NON HDL CHOLESTEROL mg/dL Optimal <130 Near Optimal 130-159 Borderline High 160-189 Very High >=190 Calculated LDL mg/dL Optimal <100 Near Optimal 100-129 Borderline High 130-159 High 160-189 Very High >=190 ATPIII Guidelines Reference Ranges for Lipid Panels (NCEP/AMA) us León Sawyer MD CHEMISTRY ORDERABLES Final R esult [facility] [employer] [facility]# [id number] [address] [place] [address] * (ABNORMAL) COMPREHENSIVE METABOLIC PANEL (05/30/2017 5:54 AM CERTIFIED MEDICAL DOSIMETRIST) SODIUM 145 136 - 145 mmol/L 05/30/2017 11:47 AM [facility] [email or web address] [facility] POTASSIUM 4.0 3.5 - 5.0 mmol/L 05/30/2017 11:47 AM [facility] [employer] [facility] CHLORIDE 107 98 - 107 mmol/L 05/30/2017 11:47 AM [facility] [employer] [facility] CO2 26 22 - 29 mmol/L 05/30/2017 11:47 AM [facility] [email or web address] [facility] CALCIUM 8.6 8.6 - 10.2 mg/dL 05/30/2017 11:47 AM [facility] [email or web address] [facility] BUN 16 8 - 23 mg/dL 05/30/2017 11:47 AM [facility] [employer] [facility] CREATININE 0.85 0.51 - 0.95 mg/dL 05/30/2017 11:47 AM [facility] [employer] [facility] Comment: The GFR result is not clinically significant on patients <18 or >70 years of age. GLUCOSE 75 74 - 99 mg/dL 05/30/2017 11:47 AM [facility] [employer] LABORATORY SERVICES [facility] TOTAL PROTEIN 5.9(L) 6.7 - 8.6 g/dL 05/30/2017 11:47 AM [facility] [employer] LABORAT[facility] ALBUMIN 3.3(L) 3.5 - 5.2 g/dL 05/30/2017 11:47 AM [facility] [email or web address] [facility] BILIRUBIN TOTAL 0.2 0.2 - 1.1 mg/dL 05/30/2017 11:47 AM [facility] [email or web address] [facility] - . [facility] ALKALINE PHOSPHATASE 96 35 - 104 U/L 05/30/2017 11:47 AM [facility] [email or web address] [facility] AST 19 <33 U/L 05/30/2017 11:47 AM [facility] [email or web address] [facility] ALT 7 <34 U/L 05/30/2017 11:47 AM [facility] [email or web address] [facility] GFR >60 mL/min/1.7 3 sq meter 05/30/2017 11:47 AM [facility] [email or web address] [facility] Comment: eGFR has not been validated [...] result. GFR, >60 mL/min/1.7 3 sq meter 05/30/2017 11:47 AM [facility] [email or web address] [facility] ANION GAP 12 8 - 16 mmol/L 05/30/2017 11:47 AM [facility] [email or web address] [facility] Blood Venipuncture / Unknown 05/30/2017 5:54 AM CERTIFIED MEDICAL DOSIMETRIST 05/30/2017 11:04 AM [facility] [employer] LABORATORY [facility] - 05/30/2017 11:47 AM CERTIFIED MEDICAL DOSIMETRIST Samples containing indocyanine green cause interferences on Total and/or Direct Bilirubin and must not be measured. us León Sawyer MD CHEMISTRY ORDERABLES Final R esult [facility] - [facility] LUCIA# [id number] [address] [place] [address] * (ABNORMAL) CBC WITH DIFFERENTIAL (05/30/2017 5:54 AM CERTIFIED MEDICAL DOSIMETRIST) WBC 5.7 4.0 - 9.8 K/uL 05/30/2017 11:17 AM CERTIFIED MEDICAL DOSIMETRIST [facility] - [facility] RBC 3.70(L) 3.90 - 4.90 M/uL 05/30/2017 11:17 AM [facility] - [facility] HEMOGLOBIN 11.5(L) 11.8 - 14.8 g/dL 05/30/2017 11:17 AM [facility] - [facility] HEMATOCRIT 35.5 35.5 - 44.0 % 05/30/2017 11:17 AM [facility] MCV 95.9 82.0 - 99.0 fL 05/30/2017 11:17 AM CERTIFIED MEDICAL DOSIMETRIST [facility] MCH 31.1 27.2 - 32.6 pg 05/30/2017 11:17 AM [facility] MCHC 32.4 31.5 - 35.5 g/dL 05/30/2017 11:17 AM [facility] RDW 13.7 11.5 - 14.5 % 05/30/2017 11:17 AM [facility] RDW-STDEV 49.0(H) 37.1 - 48.7 fL 05/30/2017 11:17 AM CERTIFIED MEDICAL DOSIMETRIST [facility] PLATELETS 233 140 - 350 K/uL 05/30/2017 11:17 AM [facility] MPV 10.6 9.3 - 12.4 fL 05/30/2017 11:17 AM CERTIFIED MEDICAL DOSIMETRIST [facility] NEUTROPHILS 50 % 05/30/2017 11:17 AM CERTIFIED MEDICAL DOSIMETRIST [facility] LYMPHOCYTES 32 % 05/30/2017 11:17 AM CERTIFIED MEDICAL DOSIMETRIST [facility] MONOCYTES 11 % 05/30/2017 11:17 AM CERTIFIED MEDICAL DOSIMETRIST [facility] EOSINOPHILS 6 % 05/30/2017 11:17 AM CERTIFIED MEDICAL DOSIMETRIST [facility] BASOPHILS 1 % 05/30/2017 11:17 AM [facility] IMMATURE GRANULOCYTES 0 % 05/30/2017 11:17 AM [facility] NEUTROPHIL ABSOLUTE 2.84 1.90 - 7.00 K/uL 05/30/2017 11:17 AM CERTIFIED MEDICAL DOSIMETRIST [facility] LYMPHOCYTE ABSOLUTE 1.82 0.70 - 4.50 K/uL 05/30/2017 11:17 AM CERTIFIED MEDICAL DOSIMETRIST [facility] MONOCYTE ABSOLUTE 0.61 0.10 - 1.30 K/uL 05/30/2017 11:17 AM [facility] - [facility] EOSINOPHIL ABSOLUTE 0.36 0.00 - 0.70 K/uL 05/30/2017 11:17 AM CERTIFIED MEDICAL DOSIMETRIST [facility] BASOPHILS ABSOLUTE 0.04 0.00 - 0.20 K/uL 05/30/2017 11:17 AM CERTIFIED MEDICAL DOSIMETRIST [facility] IMMATURE GRANULOCYTES ABSOLUTE 0.02 0.00 - 0.03 K/uL 05/30/2017 11:17 AM [facility] Blood Venipuncture / Unknown 05/30/2017 5:54 AM CERTIFIED MEDICAL DOSIMETRIST 05/30/2017 11:15 AM CERTIFIED MEDICAL DOSIMETRIST León Sawyer MD HEMATOLOGY ORDERABLES Final Result [facility] [facility] - [facility] CLIA# [id number] [address] [facility] [address] [place] [address] documented in this encounter Visit Diagnoses Diagnosis Encounter for general adult medical examination without abnormal findings Routine general medical examination at a health care facility documented in this encounter
--- OUTSIDE RECORDS SUMMARY | 2025-05-17 14:56 | XMS_ITS | Clinical Summary ---
Author Organization [facility] Address [address] [place] [phone] Phone Care Team Providers Care Beverage Manager Name Role Phone Unavailable Primary Care Provider Unavailabl e Social History Tobacco Use Types Packs/Day Years Used Date Smoking Tobacco: Never Assessed Comments Unknown Sex and Gender Information Value Date Recorded Sex Assigned at Not on file Legal Sex Female 4:51 PM CDT Gender Identity Not on file Sexual Orientation Not on file Plan of Treatment Health Maintenance Due Date Last Done Comments DTAP/TDAP/TD VACCINES (1 - Tdap) 1954 PNEUMOCOCCAL VACCINE 50+ YEARS (1 of 1 - PCV) 10/05/18 88 ZOSTER VACCINE (1 of 2) 10/06/1987 OSTEOPOROSIS SCREENING 2002 RSV VACCINE (60+ or ) (1 - 1-dose 75+ series) 2012 INFLUENZA VACCINE (#1) 2024 Insurance MEDICARE PART A AND B
--- OUTSIDE RECORDS SUMMARY | 2025-05-17 14:56 | XMS_ITS | Encounter Summary ---
Author Organization [employer] Address [address] [place] [address] Care Team Providers Care Pool Servicer Name Role Phone Unavailable Primary Care Provider Unavailabl e Encounter Details Date Type Department Care Team (Late st Contact Info) Description 01/22/2018 Lab Requisition [employer] [facility] [address] [place] [address] [place] [address] León Sawyer MD [address] [place] [address] Essential (primary) hypertension Social History Tobacco Use Types Packs/Day Years [...] Procedure Name Priority Date/Time Associated Diagnosis Comments BASIC METABOLIC PANEL Routine 01/22/2018 4:16 AM CDT Essential (primary) hypertension documented in this encounter Results * BASIC METABOLIC PANEL (01/22/2018 4:16 AM CDT) SODIUM 143 136 - 145 mmol/L 01/22/2018 9:47 AM CDT [facility] - [facility] POTASSIUM 3.9 3.5 - 5.0 mmol/L 01/22/2018 9:47 AM CDT [facility] - [facility] CHLORIDE 102 98 - 107 mmol/L 01/22/2018 9:47 AM CDT [facility] CO2 28 22 - 29 mmol/L 01/22/2018 9:47 AM CDT [facility] - [facility] CALCIUM 9.1 8.6 - 10.2 mg/dL 01/22/2018 9:47 AM CDT [facility] - [facility] BUN 21 8 - 23 mg/dL 01/22/2018 9:47 AM [facility] [employer] [facility]ATORY [facility] - [facility] CREATININE 0.87 0.51 - 0.95 mg/dL 01/22/2018 9:47 AM [facility] LAB[facility]ATORY [facility] Comment: The GFR result is not clinically significant on patients <18 or >70 years of age. GLUCOSE 86 74 - 99 mg/dL 01/22/2018 9:47 AM [facility] GFR >60 mL/min/1.7 3 sq meter 01/22/2018 9:47 AM [facility] Comment: eGFR has not been validated for [...] result. GFR, >60 mL/min/1.7 3 sq meter 01/22/2018 9:47 AM [facility]ORY [facility] - [facility] ANION GAP 13 8 - 16 mmol/L 01/22/2018 9:47 AM [facility] Blood Venipuncture / Unknown 01/22/2018 4:16 AM CDT 01/22/2018 8:52 AM CDT us León Sawyer MD CHEMISTRY ORDERABLES Final R esult [facility] [employer] [facility]# [id number] [address] [place] [address] documented in this encounter Visit Diagnoses Diagnosis Essential (primary) hypertension Unspecified essential hypertension documented in this encounter
--- NOTE | 2025-05-17 15:15 | P.HP_ITS ---
H&P: HPI History of Present Illness Date/Time: 05/17/25 15:15 Chief Complaint: Coffee-ground emesis Narrative: 89-year-old female with dementia presents the hospital with coffee-ground emesis and melena. Patient has no history of GI bleed and is not on blood thinners. Patient unable to give history due to dementia, left voicemail with family. HPI is limited. Patient has a rectal tube with dark maroon stool. Patient screams any time you touch her. Lab work in the ED shows leukocytosis of 14.3, hemoglobin added 9.0, INR 1.3, potassium of 5.2, chloride of 108, BUN is 69, creatinine of 1.09, GFR 47, gluc ose of 128, Per family patient is a DNR, DNI no escalation of care, no blood. Family has declined scope.. If patient were to have a decline they will need to comfort care. Review of Systems Review of Systems: ROS unobtainable: Yes unobtainable due to mental status [facility] Past Medical History Medical History (Updated 05/17/25 @ 23:09 by Gisella Finch, STATISTICS PROFESSOR) Dementia Seizures Hypertension Social History Social History Smoking status: Never smoker Alcohol intake: former Substance use: former Spiritual care concerns: Yes (Anabaptism/Any Worder) Meds Home Medications and Allergies Home Medications ?Medication ?Instructions ?Recorded ?Confirmed ?Type acetaminophen 325 mg capsule 650 mg PO Q6H PRN pain 05/17/25 History acetaminophen 650 mg 650 mg PO BID 05/17/2505/17 History tablet,extended release (8 Hour Pain Reliever) amlodipine 5 mg tablet 5 mg PO DAILY 05/17/2505/17 History aspirin 81 mg capsule 81 mg PO DAILY 05/17/2504/27 History bumetanide 0.5 mg tablet 0.5 mg PO DAILY 05/17/25 History calcium carbonate (Calcium 600) 600 mg PO BID 05/17/25 05/17/25 History cetirizine 10 mg tablet (All Day 10 mg PO DAILY 05/17/25 History Allergy (cetirizine)) cyanocobalamin (vitamin B-12) 500 500 mcg PO DAILY 05/17/25 History mcg tablet (B-12 DOTS) ergocalciferol (vitamin D2) 1,250 1,250 mcg PO WEEKLY 05/17/25 05/17/25 History mcg (50,000 unit) capsule levetiracetam 500 mg tablet 500 mg PO BID 05/17/25 History (Keppra) loperamide 2 mg tablet 2 mg PO Q3H PRN loose stool 05/17/25 05/17/25 History (Anti-Diarrheal (loperamide)) meclizine 12.5 mg tablet 12.5 mg PO BID 05/17/2504/27 History meloxicam 15 mg tablet 15 mg PO DAILY 05/17/2504/27 History metoprolol succinate 25 mg 25 mg PO BID 05/17/2505/17 History tablet,extended release 24 hr nystatin 100,000 unit/gram topical 1 applic topical BI D 05/17/25 05/17/25 History powder (Nystop) ondansetron 4 mg disintegrating 4 mg PO Q6H PRN nausea and vomiting 05/17/25 05/17/25 History tablet potassium chloride 10 mEq 20 meq PO DAILY 05/17/25 History capsule,extended release simvastatin 10 mg tablet 10 mg PO HS 05/17/25 5 History Allergies Allergy/AdvReac Type Severity Reaction Status Date / Time Penicillins Allergy Intermediate Unknown Verified 05/17/25 17:35 phenytoin Allergy Unknown Unknown Verified 05/17/25 17:35 propoxyphene Allergy Unknown Unknown Verified 05/17/25 17:35 Vital Signs Vital Signs - 24 hr 05/17/25 12:20 05/17/25 14:42 Temperature 97.6 F Pulse Rate 82 104 H Respiratory Rate 20 19 Blood Pressure 116/61 125/56 L Pulse Oximetry 100 100 Oxygen Delivery Room Air Exam Narrative: General: Appears to be in pain HEENT: normocephalic, atraumatic. Mucous membranes moist. EOMI, PERRLA, bilateral sclera anicteric, no conjunctival injection. Neck supple without JVD, lymphadenopathy, or bruit. Respiratory: clear bilaterally. No rales/rhonic/wheezes. Cardiovascular: Regular rate and rhythm, normal S1-S2. No murmurs, rubs, or clicks. PMI is nondisplaced, capillary refill less than 3 second. Abdomen: Soft, round, no pulsatile masses, nondistended and nontender. No rebound, no guarding. Bowel sounds present to all four quadrants. No high pitch or tinkling sounds, resonant to percussion. Extremities: No cyanosis, clubbing, or edema present. Pulses are palpable 2/2. Active ROM to all four extremities. Neuro: Alert and orientated x 0. PERRLA. Cranial nerves 2-12 intact without focal deficit. Skin: Warm, dry, and intact, without rash, erythema, or lesion. Psych: pleasant, cooperative, normal speech, normal affect, no hallucinations, no dysarthia Rectal tube, Jimenez catheter Results Labs Labs: Short CBC 05/17/25 Range/Units 13:30 WBC 14.3 H (4.5-10.0) K/mm3 Hgb 9.0 L (12.0-15.0) g/dL Hct 29.4 L (37.0-47.0) % Plt Count 287 (150-375) k/mm3 BMP 05/17/25 13:30 Sodium 139 Potassium 5.2 H Chloride 108 H Carbon Dioxide 25 BUN 69 H Creatinine 1.09 H Glucose 120 H Calcium 9.2 Liver Function 05/17/25 Range/Units 13:30 Total Bilirubin 0.6 (0.2-1.3) mg/dL AST 20 (14-36) U/L ALT 13 (6-35) U/L Alkaline Phosphatase 66 (38-126) U/L Albumin 3.3 L (3.5-5.1) g/dL Attestation: I personally reviewed all lab results Quality VTE Prophylaxis VTE prophylaxis: mechanical ordered Assessment and Plan Assessment and plan (1) Hyperkalemia: Code(s): E87.5 - Hyperkalemia Status: Acute Assessment and Plan: [facility] labs in a.m. (2) GI bleed: Code(s): K92.2 - Gastrointestinal hemorrhage, unspecified Status: Acute Assessment and Plan: Protonix b.i.d. Family has declined blood and scope, no escalation of care Symptomatic support Rectal tube CBC morning (3) Anemia: Code(s): D64.9 - Anemia, unspecified Status: Acute Assessment and Plan: Family has declined blood and scope, no escalation of care (4) Leukocytosis: Code(s): D72.829 - Elevated white blood cell count, unspecified Status: Acute Assessment and Plan: X-ray no acute finding UA negative for infection (5) Urinary retention: Code(s): R33.9 - Retention of urine, unspecified Status: Acute Assessment and Plan: Jimenez catheter (6) Seizures: Code(s): R56.9 - Unspecified convulsions Status: Acute Assessment and Plan: Continue Keppra (7) CHF (congestive heart failure): Code(s): I50.9 - Heart failure, unspecified Status: Acute Assessment and Plan: Currently holding Bumex due to dehydration (8) Hypertension: Code(s): I10 - Essential (primary) hypertension Status: Acute Assessment and Plan: Holding home antihypertensives due to GI bleed and dehydration Plan Patient is currently dehydrated receiving IV fluids, however goals of care need to be discussed with family, unable to get a hold of family at this time. Time Spent with Patient Time with patient: less than 45 minutes Hospitalist MIPS Advance Care Plan I have confirmed that the patient's Advanced Care Plan is present, code status is documented, or surrogate decision maker is listed in patient medical record.: Yes Medication Reconciliation I have utilized all available resources to obtain, update and review the patients current medications (includes all prescriptions, OTC, herbals, cannabis , and nutritional supplements).: Yes
[2025-05-17] MEDS: SODIUM ZIRCONIUM CYCLOSILICATE 10 GM POWD.PACK PO (16:33)
--- NOTE | 2025-05-17 16:44 | WPCEDHO ---
ED Hand Off Checklist All vitals saved: yes IV Site documented: yes All med administrations documented: yes Triage Note Triage Note pt to ED via [facility] from 05/17/25 12:20 [facility] with c/o n/v/d and GI bleed. correction reports 3 episodes of vomiting this morning that was dark in color but no blood. pt had a near syncopal episode on the toilet this morning while attempted to have a BM. EMS was called after the BM looked like coffee grounds . senior care reports pt does not take blood thinners. pt has no complaints at this time. pt is A&O1 upon arrival. Allergies Penicillins Allergy (Intermediate, Verified 05/17/25 15:07) Unknown acetaminophen Allergy (Unknown, Verified 05/17/25 15:07) Unknown phenytoin Allergy (Unknown, Verified 05/17/25 15:07) Unknown propoxyphene Allergy (Unknown, Verified 05/17/25 15:07) Unknown Administered/Completed Medications Discontinued Medications Pantoprazole Sodium (Pantoprazole Sodium Iv 40 Mg Vial) 40 mg IV PUSH ONCE STA Stop: 05/17/25 13:07 Last Admin: 05/17/25 14:38 Dose: 40 mg Documented By: RANI Sodium Zirconium Cyclosilicate (Sodium Zirconium Cyclosilicate 10 Gm Powd.Pack) 10 gm PO ONCE ONE Stop: 05/17/25 15:23 Last Admin: 05/17/25 16:33 Dose: 10 gm Documented By: RANI Interventions/Assessments IV / Saline Lock, Insert Start: 05/17/25 12:16 Freq: Status: Active Protocol: Document 05/17/25 14:40 RANI (Rec: 05/17/25 16:44 RANI [id number]) IV Assessment Peripheral Access Right Forearm IV Catheter Access Initiated IV Insertion Date 05/17/25 IV Insertion Time 14:40 Catheter Gauge 20 IV Insertion 1 Attempts Ultrasound Used for Yes Placement IV Site Assessment WNL IV Care and WNL Maintenance Last Vital Signs Temperature 97.6 F 05/17/25 12:20 Pulse Rate 111 H 05/17/25 16:40 Respiratory Rate 21 H 05/17/25 16:40 Pulse Oximetry 98 05/17/25 16:40 Blood Pressure 102/38 L 05/17/25 16:40 Blood Pressure Mean 52 05/17/25 16:40 Oxygen Delivery Room Air 05/17/25 12:20 Weight 108.6 kg 05/17/25 12:20 Last Result - Abnormals Only WBC 14.3 K/mm3 (4.5-10.0) H 05/17/25 13:30 RBC 3.24 M/mm3 (4.2-5.4) L 05/17/25 13:30 Hgb 9.0 g/dL (12.0-15.0) L 05/17/25 13:30 Hct 29.4 % (37.0-47.0) L 05/17/25 13:30 MCHC 30.6 g/dl (32-36) L 05/17/25 13:30 RDW 17.0 % (11.5-14.5) H 05/17/25 13:30 Immature Gran % (Auto) 0.9 % (0-0.5) H 05/17/25 13:30 Neut % (Auto) 76.3 % (45.5-73.1) H 05/17/25 13:30 Lymph % (Auto) 14.9 % (18.3-44.2) L 05/17/25 13:30 [place] # (Auto) 1.0 K/mm3 (0.1-0.6) H 05/17/25 13:30 Abs Immat Gran (auto) 0.13 K/mm3 (0.00-0.031) H 05/17/25 13:30 Absolute Neuts (auto) 10.9 K/mm3 (1.3-6.7) H 05/17/25 13:30 PT 15.7 Seconds (11.1-14.7) H 05/17/25 13:30 Potassium 5.2 mmol/L (3.4-5.0) H 05/17/25 13:30 Chloride 108 mmol/L (98-107) H 05/17/25 13:30 BUN 69 mg/dL (7-17) H 05/17/25 13:30 Creatinine 1.09 mg/dL (0.7-1.0) H 05/17/25 13:30 Estimated GFR 47 (59-) L 05/17/25 13:30 Glucose 120 mg/dL (65-110) H 05/17/25 13:30 Total Protein 6.0 g/dL (6.3-8.2) L 05/17/25 13:30 Albumin 3.3 g/dL (3.5-5.1) L 05/17/25 13:30
[2025-05-17 16:46] LABS: Add Urine Microscopic? NO; Appearance Urine Clear (Clear); Glucose Urine UA Negative (Negative); Leukocyte Esterase Ur Negative LEU/UL (Negative); Nitrate Urine Negative (Negative); Specific Grav Ur 1.020 (1.001-1.035)
--- NOTE | 2025-05-17 17:29 | ADMGEN ---
This patient, Mikayla Acevedo, was admitted to Medical Room 245-. Patient/family oriented to hospital policies and general routines including ID bracelet, bed and alarms, visiting hours, pain management, procedures, bathroom and other care routines, personal items, smoking policy, room service/diet, and visiting hours. Information on how to activate the Rapid Response Team has been discussed. Patient/Family are encouraged to report perceived risks to care and to ask questions if they do not understand what they are told or what they should do.
[2025-05-17] MEDS: SODIUM CHLORIDE 0.9% IV 1,000 ML 75 ML IV CONT (17:50)
[2025-05-17] MEDS: SODIUM CHLORIDE 0.9% IV 500 ML IV CONT (17:50)
[2025-05-17 18:18] LABS: Hematocrit 27.4 % (37.0-47.0); Hemoglobin 8.6 g/dL (12.0-15.0)
[2025-05-17] MEDS: METOPROLOL SUCCINATE EXT REL 25 MG TABCR PO (23:32)
[2025-05-17] MEDS: MORPHINE SULFATE (*CRX) 4 MG/ML INJ 2 MG IV PUSH (23:33)
[2025-05-18] VITALS (15 sets, daily range): BP systolic 119–146; BP diastolic 46–74; PULSE 73–107; RESP 18–20; TEMP 35.8–37; O2SAT 97–99
--- NOTE | 2025-05-18 08:40 | P.PNIM_ITS ---
Assessment and Plan Assessment and Plan (1) Hyperkalemia: Code(s): E87.5 - Hyperkalemia Status: Acute Assessment and Plan: Lokelma x1 in the ED Resolved, continued labs (2) GI bleed: Code(s): K92.2 - Gastrointestinal hemorrhage, unspecified Status: Acute Assessment and Plan: Protonix b.i.d. Symptomatic support, no TTP today Rectal tube with continued tarry stool Timed H&H and AM labs, transfuse if below 7 GI consulted pt today, family agrees with blood transfusion to see if bleeding stops on its own. If H&H continues to drop, then a decision will be made at that time if they would like to proceed with endoscopic evaluation. (3) Anemia: Code(s): D64.9 - Anemia, unspecified Status: Acute Assessment and Plan: See above (4) Leukocytosis: Code(s): D72.829 - Elevated white blood cell count, unspecified Status: Acute Assessment and Plan: X-ray no acute finding UA negative for infection Trend labs (5) Urinary retention: Code(s): R33.9 - Retention of urine, unspecified Status: Acute Assessment and Plan: Jimenez catheter (6) Seizures: Code(s): R56.9 - Unspecified convulsions Status: Acute Assessment and Plan: Chronic Continue Keppra (7) CHF (congestive heart failure): Code(s): I50.9 - Heart failure, unspecified Status: Acute Assessment and Plan: Currently holding Bumex due to dehydration Daily labs (8) Hypertension: Code(s): I10 - Essential (primary) hypertension Status: Acute Assessment and Plan: Holding home antihypertensives due to GI bleed and dehydration Plan Patient is currently dehydrated receiving IV fluids. Per family patient is a DNR, DNI, accepting of blood now, pending GI workup if H&H continues to down trend. Medical Record Review I have reviewed the following patient records and this information was taken into consideration when formulating the assessment and plan.: previous labs Consultations Consultations: I have discussed the care of this pt with the consulting providers. Subjective Date/time seen: 05/18/25 0935 Interval history: Pt sleeping upon my arrival to the room, arousable with touch and voice. Pt daughter, Rosie, and granddaughter, Mildred, at the bedside. Had a lengthy conversation with her daughter on the updated in the pt's hgb (now 7) and uptrending WBC. Family wanting to discuss options with GI before any dec isions are made, but their goal is comfort for the pt. GI to round shortly. Review of Systems Review of Systems: ROS unobtainable: Yes unobtainable due to mental status Exam Narrative: General: Appears stated age, in no acute distress HEENT: normocephalic, atraumatic. Mucous membranes tacky. EOMI, PERRLA, bilateral sclera anicteric, no conjunctival injection. Neck supple without JVD, lymphadenopathy, or bruit. Respiratory: clear bilaterally. No rales/rhonchi/wheezes. Cardiovascular: Regular rate and rhythm, normal S1-S2. No murmurs, rubs, or clicks. PMI is nondisplaced, capillary refill less than 3 second. Abdomen: Soft, round, no pulsatile masses, nondistended and nontender. No rebound, no guarding. Bowel sounds present to all four quadrants. No high pitch or tinkling sounds, resonant to percussion. Extremities: No cyanosis, clubbing, or edema present. Pulses are palpable 2/2. Active ROM to all four extremities. Neuro: Alert and orientated x 0. PERRLA. Cranial nerves 2-12 intact without f ocal deficit. Skin: Warm, dry, and intact, without rash, erythema, or lesion. Psych: pleasant when awake Rectal tube, Jimenez catheter in place Objective Data Vital Signs Vital Signs: Vital Signs - 24 hr 05/17/25 12:20 05/17/25 14:42 05/17/25 14:46 Temperature 97.6 F Pulse Rate 82 104 H 90 Respiratory Rate 20 19 25 H Blood Pressure 116/61 125/56 L 101/85 Pulse Oximetry 100 100 100 Oxygen Delivery Room Air 05/17/25 15:01 05/17/25 15:16 05/17/25 15:31 Temperature Pulse Rate 92 107 H 94 Respiratory Rate 28 H 25 H 26 H Blood Pressure 70/52 L 94/52 L 92/79 L Pulse Oximetry 100 100 100 Oxygen Delivery 05/17/25 15:46 05/17/25 16:01 05/17/25 16:16 Temperature Pulse Rate 93 89 117 H Respiratory Rate 24 H 21 H 14 Blood Pressure 95/70 L 120/76 147/102 H Pulse Oximetry 99 100 99 Oxygen Delivery 05/17/25 16:40 05/17/25 18:31 05/17/25 20:00 Temperature Pulse Rate 111 H 111 H 99 Respiratory Rate 21 H 21 H Blood Pressure 102/38 L Pulse Oximetry 98 98 Oxygen Delivery Room Air 05/17/25 21:33 05/17/25 23:32 05/18/25 00:00 Temperature 97.4 F L Pulse Rate 104 H 106 H 94 Respiratory Rate 12 Blood Pressure 120/70 Pulse Oximetry 100 Oxygen Delivery 05/18/25 04:00 05/18/25 06:00 Temperature 96.5 F L Pulse Rate 73 88 Respiratory Rate 20 Blood Pressure 119/62 Pulse Oximetry 98 Oxygen Delivery Intake/Output Intake/Output: Intake & Output 05/15/25 05/16/25 05/17/25 05/18/25 23:59 23:59 23:59 23:59 Intake Total 50 Output Total 1250 Balance -1200 Meds/Results Medications: Active Medications Generic Name Dose Route Start Last Admin Trade Name Freq PRN Reason Stop Dose Admin Sodium Chloride 1,000 mls @ 75 mls/hr 05/17/25 17:35 05/17/25 17:50 Normal Saline Iv IV CONT 75 mls/hr .[id number] JUNE Administration Levetiracetam 500 mg 05/17/25 23:15 05/17/25 23:32 Levetiracetam 500 Mg Tablet PO 500 mg BID JUNE Administration Metoprolol Succinate 25 mg 05/17/25 23:30 05/17/25 23:32 Metoprolol Succinate Ext Rel 25 Mg Tabcr PO 25 mg Q12HR JUNE Administration Morphine Sulfate 2 mg 05/17/25 22:11 05/17/25 23:33 Morphine Sulfate (*Crx) 4 Mg/Ml Inj IV PUSH 2 mg Q4H PRN Administration Pain Rated 7-10 Pantoprazole Sodium 40 mg 05/17/25 21:00 05/17/25 21:17 Pantoprazole Sodium Iv 40 Mg Vial IV PUSH 40 mg Q12HR JUNE Administration Radiology Results: ITS Impressions Chest X-Ray 05/17/25 15:33 IMPRESSION: 1: NO ACUTE CARDIOPULMONARY DISEASE. Labs Labs: Laboratory Results - last 24 hr 05/17/25 05/17/25 05/17/25 13:30 16:32 18:13 WBC 14.3 H RBC 3.24 L Hgb 9.0 L 8.6 L Hct 29.4 L 27.4 L MCV 90.7 MCH 27.8 MCHC 30.6 L RDW 17.0 H Plt Count 287 MPV 10.0 Immature Gran % (Auto) 0.9 H Neut % (Auto) 76.3 H Lymph % (Auto) 14.9 L Smith % (Auto) 7.2 Eos % (Auto) 0.4 Baso % (Auto) 0.3 Lymph # (Auto) 2.13 Smith # (Auto) 1.0 H Eos # (Auto) 0.1 Baso # (Auto) 0.1 Abs Immat Gran (auto) 0.13 H Absolute Neuts (auto) 10.9 H Absolute Nucleated RBC 0.000 Nucleated RBC % 0.0 PT 15.7 H INR 1.3 APTT 26.0 Sodium 139 Potassium 5.2 H Chloride 108 H Carbon Dioxide 25 Anion Gap 6 BUN 69 H Creatinine 1.09 H Estim Creat Clear Calc 40 Estimated GFR 47 L Glucose 120 H Calcium 9.2 Total Bilirubin 0.6 AST 20 ALT 13 Alkaline Phosphatase 66 Total Protein 6.0 L Albumin 3.3 L Urine Color Yellow Urine Appearance Clear Urine pH 6.0 Ur Specific [place] 1.020 Urine Protein Negative Urine Glucose (UA) Negative Urine Ketones 1+ H Ur Blood (Man) Negative Urine Nitrate Negative Urine Bilirubin Negative Urine Urobilinogen 0.2 Leukocyte Esterase Rfl Negative Blood Type O Positive Antibody Screen Negative Quality VTE Prophylaxis VTE prophylaxis: mechanical ordered
[2025-05-18] MEDS: SODIUM CHLORIDE 0.9% IV 1,000 ML 75 ML IV CONT ×2 (09:10→22:49)
[2025-05-18 09:12] LABS: Hematocrit 22.6 % (37.0-47.0); Hemoglobin 7.0 g/dL (12.0-15.0); Mean Corpuscular HGB Conc 31.0 g/dl (32-36); Mean Corpuscular Hemoglobin 27.9 pg (26-34); Mean Corpuscular Volume 90.0 fl (80-100); Platelet Count Result 260 k/mm3 (150-375); Red Blood Count 2.51 M/mm3 (4.2-5.4); White Blood Count 15.6 K/mm3 (4.5-10.0)
[2025-05-18] MEDS: METOPROLOL SUCCINATE EXT REL 25 MG TABCR PO (09:13)
[2025-05-18] MEDS: PANTOPRAZOLE SODIUM IV 40 MG VIAL IV PUSH ×2 (09:15→20:27)
[2025-05-18 09:37] LABS: Alanine Aminotransferase 11 U/L (6-35); Albumin Level 2.9 g/dL (3.5-5.1); Alkaline Phosphatase 60 U/L (38-126); Anion Gap 4 mmol/L (4-12); Aspartate Amino Transferase 17 U/L (14-36); Bilirubin,Total 0.4 mg/dL (0.2-1.3); Blood Urea Nitrogen 54 mg/dL (7-17); Calcium 8.8 mg/dL (8.4-10.2); Carbon Dioxide 25 mmol/L (22-30); Chloride 111 mmol/L (98-107); Estimated CRCL calculation 48 ml/min; Estimated Glomerular Filt Rate 58; Glucose 107 mg/dL (65-110); Potassium 4.1 mmol/L (3.4-5.0); Sodium 140 mmol/L (137-145); Total Protein 5.4 g/dL (6.3-8.2)
--- NOTE | 2025-05-18 10:59 | WPDGICN ---
Assessment and Plan Assessment and plan (1) GI bleed: Qualifiers: GI bleed type/associated pathology: melena Qualified Code(s): K92.1 - Melena Code(s): K92.2 - Gastrointestinal hemorrhage, unspecified Status: Acute (2) ABLA (acute blood loss anemia): Code(s): D62 - Acute posthemorrhagic anemia Status: Acute (3) Melena: Code(s): K92.1 - Melena Status: Acute (4) Hematochezia: Code(s): K92.1 - Melena Status: Acute (5) Leukocytosis: Qualifiers: Leukocytosis type: unspecified Qualified Code(s): D72.829 - Elevated white blood cell count, unspecified Code(s): D72.829 - Elevated white blood cell count, unspecified Status: Acute Plan 1. Upper GI bleed/hematemesis/melena/leukocytosis: Patient has never had an EGD. If she has ever had a colonoscopy it was >10 years ago, daughter could not confirm. Patient with no GI issues until yesterday when she had a one time episode of vomiting which was noted to be dark in color and then followed by dark stools. Patient has a fecal management system with dark maroon stool, per daughter, patient was previously having black stools. Patient with Hx of A-Fib and is on aspirin 81 mg daily but no other anticoagulants. Patient was also taking meloxicam daily. Per daughter, prior to yesterday the patient was having no GI issues and had been eating well with no swallowing difficulty or weight loss. DDX: PUD 2/2 NSAID use vs AVM vs small bowel source of bleeding vs neoplasm vs acute infectious etiology, less likely varices given no Hx of liver disease. POA/daughter Rosie agrees to start with a blood transfusion and if H/H does not stabilize we will consider EGD at that time care with NSAID, aspirin and anticoags primary care team to continue monitoring H/H and transfuse as needed to keep Hgb >7 patient with leukocytosis with WBC's 16, no recent GI imaging to exclude acute infectious/inflammatory etiology at this time Thank you very much for allowing me to share in the care of this very nice patient. This report may have been done utilizing a voice recognition system. Attempts have been made to correct errors. However, there may be uncorrected grammatical, spelling, and recognition errors present. GI Consult Note Consult date/time: 05/18/25 10:59 Reason for consult: Upper GI bleed HPI: Mikayla Acevedo is a 89 year old female with PMSH of CHF, HTN, A-Fib and rosa insufficiency. She presented to the ER from longterm for GI bleed. GI has been consulted for GI bleed and anemia. Patient was accompanied by her daughter/POA read up throughout the entire visit. Patient unable to provide any subjective information or medical history due to altered mental status and dementia. Patient's daughter states that prior to admission she was having no GI issues until yesterday when she had a 1 time episode of dark emesis followed by melena. Prior to admission patient's daughter states that she was having normal daily bowel movements without difficulty and without any hematochezia. No prior history of nausea and vomiting episodes, abdominal pain, swallowing difficulty, decreased appetite or unexplained weight loss. Patient's daughter does not believe that the patient has ever had abdominal surgery. She was on aspirin 81 mg and meloxicam daily prior to admission. Family history negative for CRC or IBD. ENDOSCOPY HISTORY: Daughter states that the patient has never had an EGD and if she did have a colonoscopy to was > 10 years ago LABS AND STOOL STUDIES: Labs 05/18/2025: Sodium 140, potassium 4.1, BUN 54, creatinine 0.91, GFR 58 WBC 16, Hgb 9-->7, Hct 29-->23, MCV 90, platelets 260, INR 1.3 Total bilirubin 0.4, AST 17, ALT 11, Alkaline Phos 60, albumin 2.9 IMAGING: No recent GI imaging Review of Systems Review of Systems: ROS unobtainable: Yes unobtainable due to medical condition and unobtainable due to mental status [facility] Past Medical History Medical History (Updated 05/18/25 @ 12:40 by Leida Carrillo APRN) Dementia Seizures Hypertension Social History Social History Smoking status: Never smoker Alcohol intake: former Substance use: former Spiritual care concerns: Yes (Yarsanism/Any Worder) Meds Home Medications and Allergies Home Medications ?Medication ?Instructions ?Recorded ?Confirmed ?Type acetaminophen 325 mg capsule 650 mg PO Q6H PRN pain 05/17/25 05/17/25 History acetaminophen 650 mg 650 mg PO BID 05/17/25 05/17/25 History tablet,extended release (8 Hour Pain Reliever) amlodipine 5 mg tablet 5 mg PO DAILY 05/17/25 05/17/25 History aspirin 81 mg capsule 81 mg PO DAILY 05/17/25 05/17/25 History bumetanide 0.5 mg tablet 0.5 mg PO DAILY 05/17/25 05/17/25 History calcium carbonate (Calcium 600) 600 mg PO BID 05/17/25 05/17/25 History cetirizine 10 mg tablet (All Day 10 mg PO DAILY 05/17/25 05/17/25 History Allergy (cetirizine)) cyanocobalamin (vitamin B-12) 500 500 mcg PO DAILY 05/17/25 05/17/25 History mcg tablet (B-12 DOTS) ergocalciferol (vitamin D2) 1,250 1,250 mcg PO WEEKLY 05/17/25 05/17/25 History mcg (50,000 unit) capsule levetiracetam 500 mg tablet 500 mg PO BID 05/17/25 05/17/25 History (Keppra) loperamide 2 mg tablet 2 mg PO Q3H PRN loose stool 05/17/25 05/17/25 History (Anti-Diarrheal (loperamide)) meclizine 12.5 mg tablet 12.5 mg PO BID 05/17/25 05/17/25 History meloxicam 15 mg tablet 15 mg PO DAILY 05/17/25 05/17/25 History metoprolol succinate 25 mg 25 mg PO BID 05/17/25 05/17/25 History tablet,extended release 24 hr nystatin 100,000 unit/gram topical 1 applic topical BID 05/17/25 05/17/25 History powder (Nystop) ondansetron 4 mg disintegrating 4 mg PO Q6H PRN nausea and vomiting 05/17/25 05/17/25 History tablet potassium chloride 10 mEq 20 meq PO DAILY 05/17/25 05/17/25 History capsule,extended release simvastatin 10 mg tablet 10 mg PO HS 05/17/25 05/17/25 History Allergies Allergy/AdvReac Type Severity Reaction Status Date / Time Penicillins Allergy Intermediate Unknown Verified 05/17/25 17:35 phenytoin Allergy Unknown Unknown Verified 05/17/25 17:35 propoxyphene Allergy Unknown Unknown Verified 05/17/25 17:35 Vital Signs Vital Signs - 24 hr 05/17/25 12:20 05/17/25 14:42 05/17/25 14:46 Temperature 97.6 F Pulse Rate 82 104 H 90 Respiratory Rate 20 19 25 H Blood Pressure 116/61 125/56 L 101/85 Pulse Oximetry 100 100 100 Oxygen Delivery Room Air 05/17/25 15:01 05/17/25 15:16 05/17/25 15:31 Temperature Pulse Rate 92 107 H 94 Respiratory Rate 28 H 25 H 26 H Blood Pressure 70/52 L 94/52 L 92/79 L Pulse Oximetry 100 100 100 Oxygen Delivery 05/17/25 15:46 05/17/25 16:01 05/17/25 16:16 Temperature Pulse Rate 93 89 117 H Respiratory Rate 24 H 21 H 14 Blood Pressure 95/70 L 120/76 147/102 H Pulse Oximetry 99 100 99 Oxygen Delivery 05/17/25 16:40 05/17/25 18:31 05/17/25 20:00 Temperature Pulse Rate 111 H 111 H 99 Respiratory Rate 21 H 21 H Blood Pressure 102/38 L Pulse Oximetry 98 98 Oxygen Delivery Room Air 05/17/25 21:33 05/17/25 23:32 05/18/25 00:00 Temperature 97.4 F L Pulse Rate 104 H 106 H 94 Respiratory Rate 12 Blood Pressure 120/70 Pulse Oximetry 100 Oxygen Delivery 05/18/25 04:00 05/18/25 06:00 05/18/25 09:13 Temperature 96.5 F L Pulse Rate 73 88 87 Respiratory Rate 20 Blood Pressure 119/62 Pulse Oximetry 98 Oxygen Delivery Exam Const: General: comfortable and no acute distress HENMT: Mouth: Yes moist mucous membranes Eyes: General: appearance normal, both eyes and all related structures Sclera: sclerae normal Pupils: Equal, round and reactive pupils present Neck: Neck: supple and no JVD Resp: Effort & Inspection: normal respiratory effort Auscultation: clear to auscultation bilaterally Cardio: Rate: regular rate Rhythm: regular rhythm GI: GI Palp: Yes Soft to palpation, Yes Firmness to palpation present (GI), No Tenderness to palpation present (GI) and No Guarding due to palpation present (GI) Auscultation: normal bowel sounds Other: rectal tube in place with dark maroon stool Urinary Catheter: Urinary Catheter: patent and draining Skin: General skin exam: normal color Neuro: Speech: No normal speech Extrem: General: edema and pedal edema Psych: Mental Status: mental status grossly abnormal (confusion) Results Labs 05/18/25 09:04 05/18/25 09:04 Labs: Short CBC 05/17/25 05/17/25 05/18/25 Range/Units 13:30 18:13 09:04 WBC 14.3 H 15.6 H (4.5-10.0) K/mm3 Hgb 9.0 L 8.6 L 7.0 L (12.0-15.0) g/dL Hct 29.4 L 27.4 L 22.6 L (37.0-47.0) % Plt Count 287 260 (150-375) k/mm3 BMP 05/17/25 05/18/25 13:30 09:04 Sodium 139 140 Potassium 5.2 H 4.1 Chloride 108 H 111 H Carbon Dioxide 25 25 BUN 69 H 54 H D Creatinine 1.09 H 0.91 Glucose 120 H 107 Calcium 9.2 8.8 Liver Function 05/17/25 05/18/25 Range/Units 13:30 09:04 Total Bilirubin 0.6 0.4 (0.2-1.3) mg/dL AST 20 17 (14-36) U/L ALT 13 11 (6-35) U/L Alkaline Phosphatase 66 60 (38-126) U/L Albumin 3.3 L 2.9 L (3.5-5.1) g/dL Urine 05/17/25 Range/Units 16:32 Urine Color Yellow (Yellow) Urine Appearance Clear (Clear) Urine pH 6.0 (5.0-9.0) Ur Specific [place] 1.020 (1.001-1.035) Urine Protein Negative (Negative) mg/dL Urine Glucose (UA) Negative (Negative) mg/dL
[2025-05-18 15:06] LABS: Hematocrit 21.6 % (37.0-47.0)
[2025-05-18 15:10] LABS: Hemoglobin 6.9 g/dL (12.0-15.0)
[2025-05-18] MEDS: SODIUM CHLORIDE 0.9% IV 250 ML 30 ML IV CONT (16:50)
[2025-05-18] MEDS: TUBING, BLOOD PLUM PUMP TUBING 1 EACH XX (16:50)
[2025-05-18] MEDS: MORPHINE SULFATE (*CRX) 4 MG/ML INJ 2 MG IV PUSH (20:30)
[2025-05-18 20:54] LABS: Hematocrit 26.0 % (37.0-47.0); Hemoglobin 8.3 g/dL (12.0-15.0)
[2025-05-19] VITALS (15 sets, daily range): BP systolic 105–152; BP diastolic 44–84; PULSE 69–99; RESP 17–22; TEMP 36.5–36.6; O2SAT 95–100
[2025-05-19 02:32] LABS: Hematocrit 23.5 % (37.0-47.0); Hemoglobin 7.5 g/dL (12.0-15.0); Immature Granulocyte Percent A 0.4 % (0-0.5); Lymphocytes Absolute Auto 2.16 K/mm3 (0.9-3.2); Mean Corpuscular HGB Conc 31.9 g/dl (32-36); Mean Corpuscular Hemoglobin 28.8 pg (26-34); Mean Corpuscular Volume 90.4 fl (80-100); Nucleated Red Blood Cells Absolute Auto 0.000 K/mm3 (0.0-0.012); Nucleated Red Blood Cells Perc 0.0 % (0.0-0.2); Platelet Count Result 228 k/mm3 (150-375); Red Blood Count 2.60 M/mm3 (4.2-5.4); White Blood Count 13.9 K/mm3 (4.5-10.0)
[2025-05-19 02:46] LABS: Alanine Aminotransferase 11 U/L (6-35); Albumin Level 2.8 g/dL (3.5-5.1); Alkaline Phosphatase 60 U/L (38-126); Anion Gap 2 mmol/L (4-12); Aspartate Amino Transferase 17 U/L (14-36); Bilirubin,Total 0.7 mg/dL (0.2-1.3); Blood Urea Nitrogen 35 mg/dL (7-17); Calcium 8.5 mg/dL (8.4-10.2); Carbon Dioxide 23 mmol/L (22-30); Chloride 113 mmol/L (98-107); Estimated CRCL calculation 46 ml/min; Estimated Glomerular Filt Rate 56; Glucose 100 mg/dL (65-110); Potassium 3.8 mmol/L (3.4-5.0); Sodium 138 mmol/L (137-145); Total Protein 5.2 g/dL (6.3-8.2)
--- NOTE | 2025-05-19 08:27 | PM.IMPN2 ---
Assessment and Plan Assessment and Plan (1) Hyperkalemia: Code(s): E87.5 - Hyperkalemia Status: Acute Assessment and Plan: Lokelma x1 in the ED Resolved, continued labs (2) GI bleed: Qualifiers: GI bleed type/associated pathology: melena Qualified Code(s): K92.1 - Melena Code(s): K92.2 - Gastrointestinal hemorrhage, unspecified Status: Acute Assessment and Plan: Protonix b.i.d. Symptomatic support, no TTP today Rectal tube with continued tarry stool Timed H&H and AM labs, transfuse if below 7 Family agreeable to EGD today per GI, pending (3) Anemia: Code(s): D64.9 - Anemia, unspecified Status: Acute Assessment and Plan: See above (4) Leukocytosis: Qualifiers: Leukocytosis type: unspecified Qualified Code(s): D72.829 - Elevated white blood cell count, unspecified Code(s): D72.829 - Elevated white blood cell count, unspecified Status: Acute Assessment and Plan: X-ray no acute finding UA negative for infection Trend labs (5) Urinary retention: Code(s): R33.9 - Retention of urine, unspecified Status: Acute Assessment and Plan: Jimenez catheter (6) Seizures: Code(s): R56.9 - Unspecified convulsions Status: Acute Assessment and Plan: Chronic Continue Keppra (7) CHF (congestive heart failure): Code(s): I50.9 - Heart failure, unspecified Status: Acute Assessment and Plan: Currently holding Bumex due to dehydration Daily labs (8) Hypertension: Code(s): I10 - Essential (primary) hypertension Status: Acute Assessment and Plan: Holding home antihypertensives due to GI bleed and dehydration BP has been stable during admission Plan Patient is currently dehydrated receiving IV fluids. Per family patient is a DNR, DNI, accepting of blood now, EGD to be performed today. Medical Record Review I have reviewed the following patient records and this information was taken into consideration when formulating the assessment and plan.: previous labs Consultations Consultations: I have discussed the care of this pt with the consulting providers. Subjective Date/time seen: 05/19/25 1005 Interval history: Pt awake today upon my arrival but continues to be confused. Pt daughter, Rosie, and granddaughter, Mildred, at the bedside. Pt still with black stool per rectal tube, reports yes when asked about abd pain but when palpated, no pain. Turned pt at the bedside with daughter to assess rectal tube, pt screamed out when this was performed. Pt awaiting EGD procedure. Review of Systems Review of Systems: ROS unobtainable: Yes unobtainable due to mental status Exam Narrative: General: Appears stated age, in no acute distress HEENT: normocephalic, atraumatic. Mucous membranes tacky. EOMI, PERRLA, bilateral sclera anicteric, no conjunctival injection. Neck supple without JVD, lymphadenopathy, or bruit. Respiratory: clear bilaterally. No rales/rhonchi/wheezes. Cardiovascular: Regular rate and rhythm, normal S1-S2. No murmurs, rubs, or clicks. PMI is nondisplaced, capillary refill less than 3 second. Abdomen: Soft, round, no pulsatile masses, nondistended and nontender. No rebound, no guarding. Bowel sounds absent to all four quadrants. No high pitch or tinkling sounds, resonant to percussion. Extremities: No cyanosis, clubbing, or edema present. Pulses are palpable 2/2. Active ROM to all four extremities. Neuro: Alert and orientated x 0. PERRLA. Cranial nerves 2-12 intact without focal deficit. Skin: Warm, dry, and intact, without rash, erythema, or lesion. Psych: Cooperative, cries out if touched Rectal tube, Jimenez catheter in place Objective Data Vital Signs Vital Signs: Vital Signs - 24 hr 05/18/25 09:13 05/18/25 09:15 05/18/25 12:00 Temperature Pulse Rate 87 85 Respiratory Rate Blood Pressure Pulse Oximetry 99 Oxygen Delivery Room Air 05/18/25 14:22 05/18/25 16:00 05/18/25 16:49 Temperature 97.9 F Pulse Rate 97 86 80 Respiratory Rate 20 20 Blood Pressure 122/68 Pulse Oximetry 99 99 Oxygen Delivery Room Air 05/18/25 17:05 05/18/25 18:05 05/18/25 20:00 Temperature 98.0 F 98.6 F Pulse Rate 90 98 94 Respiratory Rate 18 18 Blood Pressure 132/46 L 143/60 H Pulse Oximetry 97 98 Oxygen Delivery 05/18/25 20:05 05/18/25 20:36 05/19/25 00:00 Temperature 98.5 F 98.5 F Pulse Rate 107 H 107 H 69 Respiratory Rate 18 18 Blood Pressure 146/74 H 146/74 H Pulse Oximetry 98 98 Oxygen Delivery 05/19/25 04:00 05/19/25 06:00 Temperature 97.7 F Pulse Rate 70 91 Respiratory Rate 18 Blood Pressure 136/84 Pulse Oximetry 97 Oxygen Delivery Intake/Output Intake/Output: Intake & Output 05/16/25 05/17/25 05/18/25 05/19/25 23:59 23:59 23:59 23:59 Intake Total 2400 Output Total 2500 650 Balance -100 -650 Meds/Results Medications: Active Medications Generic Name Dose Route Start Last Admin Trade Name Freq PRN Reason Stop Dose Admin Sodium Chloride 1,000 mls @ 75 mls/hr 05/17/25 17:35 05/18/25 22:49 Normal Saline Iv IV CONT 75 mls/hr .[id number] JUNE Administration Levetiracetam 500 mg 05/17/25 23:15 05/18/25 18:07 Levetiracetam 500 Mg Tablet PO Not Given BID JUNE Metoprolol Succinate 25 mg 05/17/25 23:30 05/18/25 20:28 Metoprolol Succinate Ext Rel 25 Mg Tabcr PO Not Given Q12HR JUNE Morphine Sulfate 2 mg 05/17/25 22:11 05/18/25 20:30 Morphine Sulfate (*Crx) 4 Mg/Ml Inj IV PUSH 2 mg Q4H PRN Administration Pain Rated 7-10 Pantoprazole Sodium 40 mg 05/17/25 21:00 05/18/25 20:27 Pantoprazole Sodium Iv 40 Mg Vial IV PUSH 40 mg Q12HR JUNE Administration Radiology Results: ITS Impressions Chest X-Ray 05/17/25 15:33 IMPRESSION: 1: NO ACUTE CARDIOPULMONARY DISEASE. Labs Labs: Laboratory Results - last 24 hr 05/17/25 05/18/25 05/18/25 13:30 09:04 15:02 WBC 15.6 H RBC 2.51 L Hgb 7.0 L 6.9 L* Hct 22.6 L 21.6 L MCV 90.0 MCH 27.9 MCHC 31.0 L RDW 17.6 H Plt Count 260 MPV 9.7 Immature Gran % (Auto) Neut % (Auto) Lymph % (Auto) [place] % (Auto) Eos % (Auto) Baso % (Auto) Lymph # (Auto) [place] # (Auto) Eos # (Auto) Baso # (Auto) Abs Immat Gran (auto) Absolute Neuts (auto) Absolute Nucleated RBC Nucleated RBC % Sodium 140 Potassium 4.1 Chloride 111 H Carbon Dioxide 25 Anion Gap 4 BUN 54 H D Creatinine 0.91 Estim Creat Clear Calc 48 Estimated GFR 58 L Glucose 107 Calcium 8.8 Total Bilirubin 0.4 AST 17 ALT 11 Alkaline Phosphatase 60 Total Protein 5.4 L Albumin 2.9 L Blood Type O Positive Antibody Screen Negative Crossmatch See Detail 05/18/25 05/19/25 20:48 02:25 WBC 13.9 H RBC 2.60 L Hgb 8.3 L 7.5 L Hct 26.0 L 23.5 L MCV 90.4 MCH 28.8 MCHC 31.9 L RDW 16.8 H Plt Count 228 MPV 9.5 Immature Gran % (Auto) 0.4 Neut % (Auto) 74.3 H Lymph % (Auto) 15.6 L [place] % (Auto) 7.6 Eos % (Auto) 1.7 Baso % (Auto) 0.4 Lymph # (Auto) 2.16 [place] # (Auto) 1.1 H Eos # (Auto) 0.2 Baso # (Auto) 0.1 Abs Immat Gran (auto) 0.06 H Absolute Neuts (auto) 10.3 H Absolute Nucleated RBC 0.000 Nucleated RBC % 0.0 Sodium 138 Potassium 3.8 Chloride 113 H Carbon Dioxide 23 Anion Gap 2 L BUN 35 H D Creatinine 0.95 Estim Creat Clear Calc 46 Estimated GFR 56 L Glucose 100 Calcium 8.5 Total Bilirubin 0.7 AST 17 ALT 11 Alkaline Phosphatase 60 Total Protein 5.2 L Albumin 2.8 L Blood Type Antibody Screen Crossmatch Quality VTE Prophylaxis VTE prophylaxis: mechanical ordered
[2025-05-19 09:00] LABS: Hematocrit 24.8 % (37.0-47.0); Hemoglobin 7.8 g/dL (12.0-15.0)
[2025-05-19] MEDS: ONDANSETRON INJ 4 MG/2 ML VIAL IV PUSH (10:38)
[2025-05-19] MEDS: levETIRAcetam 500MG/NACL 100ML 500 MG/100 ML BAG 400 MG IVPB ×2 (10:39→20:29)
[2025-05-19] MEDS: PANTOPRAZOLE SODIUM IV 40 MG VIAL IV PUSH ×2 (10:39→20:29)
[2025-05-19] MEDS: LACTATED RINGERS 1,000 ML 150 ML IV CONT (12:11)
--- NOTE | 2025-05-19 12:12 | WPDANESEPPF ---
Anes - Initial Pre Proc Eval Procedure: Operation Date: 05/19/25 13:00 Proposed Procedures p Esophagogastroduodenoscopy - Leoncio Swain MD Date/Time: 05/19/25 12:12 Surgeon: Isai Carrizales MD Pre Op Diagnosis: Upper GI Bleed/Melena/Anemia Patient Data Age: 89 Gender: F Height: 1.68 m Weight: 108.6 kg Last Vital Signs Temp 36.5 C 05/19/25 06:00 Pulse 82 05/19/25 08:00 Resp 18 05/19/25 06:00 BP 136/84 05/19/25 06:00 Pulse Ox 95 05/19/25 11:25 O2 Del Method Room Air 05/19/25 11:25 Allergies Allergy/AdvReac Type Severity Reaction Status Date / Time Penicillins Allergy Intermediate Unknown Verified 05/17/25 17:35 phenytoin Allergy Unknown Unknown Verified 05/17/25 17:35 propoxyphene Allergy Unknown Unknown Verified 05/17/25 17:35 Home Medications ?Medication ?Instructions ?Recorded ?Confirmed ?Type acetaminophen 325 mg capsule 650 mg PO Q6H PRN pain 05/17/25 05/17/25 History acetaminophen 650 mg 650 mg PO BID 05/17/25 05/17/25 History tablet,extended release (8 Hour Pain Reliever) amlodipine 5 mg tablet 5 mg PO DAILY 05/17/25 05/17/25 History aspirin 81 mg capsule 81 mg PO DAILY 05/17/25 05/17/25 History bumetanide 0.5 mg tablet 0.5 mg PO DAILY 05/17/25 05/17/25 History calcium carbonate (Calcium 600) 600 mg PO BID 05/17/25 05/17/25 History cetirizine 10 mg tablet (All Day 10 mg PO DAILY 05/17/25 05/17/25 History Allergy (cetirizine)) cyanocobalamin (vitamin B-12) 500 500 mcg PO DAILY 05/17/25 05/17/25 History mcg tablet (B-12 DOTS) ergocalciferol (vitamin D2) 1,250 1,250 mcg PO WEEKLY 05/17/25 05/17/25 History mcg (50,000 unit) capsule levetiracetam 500 mg tablet 500 mg PO BID 05/17/25 05/17/25 History (Keppra) loperamide 2 mg tablet 2 mg PO Q3H PRN loose stool 05/17/25 05/17/25 History (Anti-Diarrheal (loperamide)) meclizine 12.5 mg tablet 12.5 mg PO BID 05/17/25 05/17/25 History meloxicam 15 mg tablet 15 mg PO DAILY 05/17/25 05/17/25 History metoprolol succinate 25 mg 25 mg PO BID 05/17/25 05/17/25 History tablet,extended release 24 hr nystatin 100,000 unit/gram topical 1 applic topical BID 05/17/25 05/17/25 History powder (Nystop) ondansetron 4 mg disintegrating 4 mg PO Q6H PRN nausea and vomiting 05/17/25 05/17/25 History tablet potassium chloride 10 mEq 20 meq PO DAILY 05/17/25 05/17/25 History capsule,extended release simvastatin 10 mg tablet 10 mg PO HS 05/17/25 05/17/25 History Laboratory Tests 05/17/25 05/18/25 05/18/25 13:30 15:02 20:48 WBC RBC Hgb 6.9 L* g/dL 8.3 L g/dL (12.0-15.0) (12.0-15.0) Hct 21.6 L % 26.0 L % (37.0-47.0) (37.0-47.0) MCV MCH MCHC RDW Plt Count MPV Immature Gran % (Auto) Neut % (Auto) Lymph % (Auto) [place] % (Auto) Eos % (Auto) Baso % (Auto) Lymph # (Auto) [place] # (Auto) Eos # (Auto) Baso # (Auto) Abs Immat Gran (auto) Absolute Neuts (auto) Absolute Nucleated RBC Nucleated RBC % Sodium Potassium Chloride Carbon Dioxide Anion Gap BUN Creatinine Estim Creat Clear Calc Estimated GFR Glucose Calcium Total Bilirubin AST ALT Alkaline Phosphatase Total Protein Albumin Blood Type O Positive Antibody Screen Negative Crossmatch See Detail 05/19/25 05/19/25 02:25 08:25 WBC 13.9 H K/mm3 (4.5-10.0) RBC 2.60 L M/mm3 (4.2-5.4) Hgb 7.5 L g/dL 7.8 L g/dL (12.0-15.0) (12.0-15.0) Hct 23.5 L % 24.8 L % (37.0-47.0) (37.0-47.0) MCV 90.4 fl (80-100) MCH 28.8 pg (26-34) MCHC 31.9 L g/dl (32-36) RDW 16.8 H % (11.5-14.5) Plt Count 228 k/mm3 (150-375) MPV 9.5 fl (7.4-10.4) Immature Gran % (Auto) 0.4 % (0-0.5) Neut % (Auto) 74.3 H % (45.5-73.1) Lymph % (Auto) 15.6 L % (18.3-44.2) [place] % (Auto) 7.6 % (2.6-8.5) Eos % (Auto) 1.7 % (0-4.4) Baso % (Auto) 0.4 % (0.2-1.2) Lymph # (Auto) 2.16 K/mm3 (0.9-3.2) [place] # (Auto) 1.1 H K/mm3 (0.1-0.6) Eos # (Auto) 0.2 K/mm3 (0-0.3) Baso # (Auto) 0.1 K/mm3 (0.0-0.1) Abs Immat Gran (auto) 0.06 H K/mm3 (0.00-0.031) Absolute Neuts (auto) 10.3 H K/mm3 (1.3-6.7) Absolute Nucleated RBC 0.000 K/mm3 (0.0-0.012) Nucleated RBC % 0.0 % (0.0-0.2) Sodium 138 mmol/L (137-145) Potassium 3.8 mmol/L (3.4-5.0) Chloride 113 H mmol/L (98-107) Carbon Dioxide 23 mmol/L (22-30) Anion Gap 2 L mmol/L (4-12) BUN 35 H D mg/dL (7-17) Creatinine 0.95 mg/dL (0.7-1.0) Estim Creat Clear Calc 46 ml/min Estimated GFR 56 L (59 - ) Glucose 100 mg/dL (65-110) Calcium 8.5 mg/dL (8.4-10.2) Total Bilirubin 0.7 mg/dL (0.2-1.3) AST 17 U/L (14-36) ALT 11 U/L (6-35) Alkaline Phosphatase 60 U/L (38-126) Total Protein 5.2 L g/dL (6.3-8.2) Albumin 2.8 L g/dL (3.5-5.1) Blood Type Antibody Screen Crossmatch Patient hx anesthesia problems: none Family hx anesthesia problems: none Results Review: All pre-operative results and documents have been reviewed as part of the pre-operative evaluation. [facility] Past Medical History Medical History Dementia Seizures Hypertension Social History Social History Smoking status: Never smoker Alcohol intake: former Substance use: former Spiritual care concerns: Yes ([employer]/Any Worder) Anes - Eval Final PreProcedure Day of Procedure 05/19/25 12:12 Patient weight: obese Heart: irregular rhythm Lungs: decreased breath sounds Airway: Mallampati scale class III Neurological: other (alert) Last oral intake: >/= 8 hours ASA classification: IV Emergent: no Anesthetic plan: proceed Anesthesia type and monitoring: general GIVS and standard monitoring Results Review: All pre-operative results and documents have been reviewed as part of the pre-operative evaluation. Informed Consent: The patient's anesthetic plan and its attendant risks and benefits were discussed with the patient/family/POA. Questions were solicited and answers provided to the satisfaction of the patient/family/POA.
--- NOTE | 2025-05-19 12:22 | S_PTH ---
PATIENT: Mikayla Acevedo LOC: [id number] U#:[id number] AGE/SX: 89/F ROOM: 245 RE05/18/[address]: Erika Black APRN : 1935 BED: 01 DIS: 05/22/2025 SPEC #: [id number] RECD: 05/19/25 12:52 STATUS: JAMARCUS REChristen #: [id number] RUBEN: 05/19/25 12:[address]: Leoncio Swain DEPT: [facility] Surgical RECD BY: Philly Sanchez ENTERED: 05/19/25 12:52 SP TYPE: Surgical OTHR DR: MD Erika Trevizo APRN Haresh K. Motwani, MD Tissues: A - Gastric Biopsy Procedures: Hematoxylin and Eosin Stain Gross and Microscopic Level 4 H.Pylori
[2025-05-19] MEDS: SODIUM CHLORIDE 0.9% IV 1,000 ML 75 ML IV CONT (14:46)
[2025-05-19] MEDS: METOPROLOL SUCCINATE EXT REL 25 MG TABCR PO (20:29)
[2025-05-19] MEDS: MORPHINE SULFATE (*CRX) 4 MG/ML INJ 2 MG IV PUSH (21:09)
[2025-05-20] VITALS (10 sets, daily range): BP systolic 111–144; BP diastolic 52–79; PULSE 68–88; RESP 16–18; TEMP 36.3–37.3; O2SAT 96–99
[2025-05-20] MEDS: SODIUM CHLORIDE 0.9% IV 1,000 ML 75 ML IV CONT ×2 (01:04→15:00)
[2025-05-20 05:47] LABS: Hematocrit 24.2 % (37.0-47.0); Hemoglobin 7.7 g/dL (12.0-15.0); Immature Granulocyte Percent A 0.6 % (0-0.5); Immature Platelet Fraction Pct 2.7 % (0.9-11.2); Lymphocytes Absolute Auto 2.18 K/mm3 (0.9-3.2); Mean Corpuscular HGB Conc 31.8 g/dl (32-36); Mean Corpuscular Hemoglobin 30.4 pg (26-34); Mean Corpuscular Volume 95.7 fl (80-100); Nucleated Red Blood Cells Absolute Auto 0.040 K/mm3 (0.0-0.012); Nucleated Red Blood Cells Perc 0.3 % (0.0-0.2); Platelet Count Result 199 k/mm3 (150-375); Red Blood Count 2.53 M/mm3 (4.2-5.4); White Blood Count 12.5 K/mm3 (4.5-10.0)
[2025-05-20 06:05] LABS: Alanine Aminotransferase 10 U/L (6-35); Albumin Level 2.9 g/dL (3.5-5.1); Alkaline Phosphatase 64 U/L (38-126); Anion Gap 4 mmol/L (4-12); Aspartate Amino Transferase 17 U/L (14-36); Bilirubin,Total 0.6 mg/dL (0.2-1.3); Blood Urea Nitrogen 21 mg/dL (7-17); Calcium 8.3 mg/dL (8.4-10.2); Carbon Dioxide 24 mmol/L (22-30); Chloride 111 mmol/L (98-107); Estimated CRCL calculation 49 ml/min; Estimated Glomerular Filt Rate 60; Glucose 100 mg/dL (65-110); Potassium 3.4 mmol/L (3.4-5.0); Sodium 139 mmol/L (137-145); Total Protein 5.5 g/dL (6.3-8.2)
[2025-05-20 06:43] LABS: Hypochromasia 1+
[2025-05-20 06:44] LABS: Schistocytes Occasional
[2025-05-20] MEDS: METOPROLOL SUCCINATE EXT REL 25 MG TABCR PO ×2 (08:23→21:12)
[2025-05-20] MEDS: levETIRAcetam 500MG/NACL 100ML 500 MG/100 ML BAG 400 MG IVPB ×2 (08:23→21:16)
[2025-05-20] MEDS: PANTOPRAZOLE SODIUM IV 40 MG VIAL IV PUSH ×2 (08:24→21:12)
[2025-05-20] MEDS: MORPHINE SULFATE (*CRX) 4 MG/ML INJ 2 MG IV PUSH ×3 (10:57→22:23)
--- NOTE | 2025-05-20 11:55 | P.PNGI_ITS ---
Progress Note: A&P Assessment and Plan (1) Gastric ulcer: Code(s): K25.9 - Gastric ulcer, unspecified as acute or chronic, without hemorrhage or perforation Status: Acute Assessment and Plan: non bleeding gastric ulcers continue with protonix twice daily no nsaid's hgb low but stable, no more signs of bleeding will follow only as needed (2) GI bleed: Qualifiers: GI bleed type/associated pathology: melena Qualified Code(s): K92.1 - Melena Code(s): K92.2 - Gastrointestinal hemorrhage, unspecified Status: Acute (3) Melena: Code(s): K92.1 - Melena Status: Acute (4) Dementia: Code(s): F03.90 - Unspecified dementia, unspecified severity, without behavioral disturbance, psychotic disturbance, mood disturbance, and anxiety Status: Acute (5) ABLA (acute blood loss anemia): Code(s): D62 - Acute posthemorrhagic anemia Status: Acute Subjective Date/time seen: 05/20/25 11:55 Interval history: she is resting, she has advanced dementia no report of bleeding egd showed ulcerative gastritis, no sigsn of active bleeding Review of Systems Review of Systems: All systems reviewed & are unremarkable except as noted in HPI and below Exam Const: General: comfortable Other: resting HENMT: Face/Nose/Sinus: Normal nares present Eyes: Sclera: sclerae normal Neck: Neck: supple Resp: Effort & Inspection: normal respiratory effort Cardio: Rate: regular rate GI: GI Palp: Yes Soft to palpation and No Tenderness to palpation present (GI) Skin: General skin exam: normal color Neuro: Other: awake, she is confused, advanced dementia Extrem: General: normal to inspection Objective Data Vital Signs Vital Signs: Vital Signs - 24 hr 05/19/25 12:00 05/19/25 12:12 05/19/25 12:23 Temperature Pulse Rate 80 99 75 Respiratory Rate 22 H 18 Blood Pressure 117/82 152/75 H Pulse Oximetry 96 100 Oxygen Delivery Room Air Room Air 05/19/25 12:33 05/19/25 12:43 05/19/25 14:00 Temperature 97.9 F Pulse Rate 86 88 80 Respiratory Rate 18 18 17 Blood Pressure 106/57 L 105/67 117/59 L Pulse Oximetry 98 97 99 Oxygen Delivery Room Air Room Air 05/19/25 16:00 05/19/25 20:00 05/19/25 20:00 Temperature Pulse Rate 83 98 Respiratory Rate Blood Pressure Pulse Oximetry Oxygen Delivery Room Air 05/19/25 20:29 05/19/25 22:00 05/20/25 00:00 Temperature 97.8 F Pulse Rate 98 94 86 Respiratory Rate 18 Blood Pressure 143/44 H Pulse Oximetry 97 Oxygen Delivery 05/20/25 04:00 05/20/25 06:00 05/20/25 08:00 Temperature 97.8 F Pulse Rate 88 80 82 Respiratory Rate 18 Blood Pressure 118/52 L Pulse Oximetry 99 Oxygen Delivery 05/20/25 08:30 Temperature Pulse Rate Respiratory Rate Blood Pressure Pulse Oximetry Oxygen Delivery Room Air Intake/Output Intake/Output: Intake & Output 05/17/25 05/18/25 05/19/25 05/20/25 23:59 23:59 23:59 23:59 Intake Total 2400 1250 872.5 Output Total 2500 1350 800 Balance -100 -100 72.5 Meds/Results Medications: Active Medications Generic Name Dose Route Start Last Admin Trade Name Freq PRN Reason Stop Dose Admin Sodium Chloride 1,000 mls @ 75 mls/hr 05/17/25 17:35 05/20/25 01:04 Normal Saline Iv IV CONT 75 mls/hr .[id number] JUNE Administration Levetiracetam 500 mg in 100 mls @ 400 mls/hr 05/19/25 10:00 05/20/25 08:23 Keppra Iv IVPB 400 mls/hr Q12HR JUNE Administration Levetiracetam 500 mg 05/17/25 23:15 05/19/25 10:18 Levetiracetam 500 Mg Tablet PO Not Given On Hold: 05/19/25 09:55 BID JUNE Metoprolol Succinate 25 mg 05/17/25 23:30 05/20/25 08:23 Metoprolol Succinate Ext Rel 25 Mg Tabcr PO 25 mg Q12HR JUNE Administration Morphine Sulfate 2 mg 05/17/25 22:11 05/20/25 10:57 Morphine Sulfate (*Crx) 4 Mg/Ml Inj IV PUSH 2 mg Q4H PRN Administration Pain Rated 7-10 Ondansetron HCl 4 mg 05/19/25 09:46 05/19/25 10:38 Ondansetron Inj 4 Mg/2 Ml Vial IV PUSH 4 mg Q6H PRN Administration Nausea And Vomiting Pantoprazole Sodium 40 mg 05/17/25 21:00 05/20/25 08:24 Pantoprazole Sodium Iv 40 Mg Vial IV PUSH 40 mg Q12HR JUNE Administration Radiology Results: ITS Impressions Chest X-Ray 05/17/25 15:33 IMPRESSION: 1: NO ACUTE CARDIOPULMONARY DISEASE. Labs Labs: Laboratory Results - last 24 hr 05/20/25 04:45 WBC 12.5 H RBC 2.53 L Hgb 7.7 L Hct 24.2 L MCV 95.7 D MCH 30.4 D MCHC 31.8 L RDW 17.4 H Plt Count 199 MPV 11.4 H Immature Gran % (Auto) 0.6 H Neut % (Auto) 70.8 Lymph % (Auto) 17.5 L [place] % (Auto) 7.5 Eos % (Auto) 3.2 Baso % (Auto) 0.4 Lymph # (Auto) 2.18 [place] # (Auto) 0.9 H Eos # (Auto) 0.4 H Baso # (Auto) 0.1 Abs Immat Gran (auto) 0.08 H Absolute Neuts (auto) 8.8 H Absolute Nucleated RBC 0.040 H Band Neutrophils % Not Reportable Nucleated RBC % 0.3 H Platelet Estimate Adequate % Immature Plt Fraction 2.7 Hypochromasia 1+ Schistocytes Occasional Sodium 139 Potassium 3.4 Chloride 111 H Carbon Dioxide 24 Anion Gap 4 BUN 21 H D Creatinine 0.89 Estim Creat Clear Calc 49 Estimated GFR 60 Glucose 100 Calcium 8.3 L Total Bilirubin 0.6 AST 17 ALT 10 Alkaline Phosphatase 64 Total Protein 5.5 L Albumin 2.9 L
--- NOTE | 2025-05-20 12:42 | PM.IMPN2 ---
Assessment and Plan Assessment and Plan (1) Hyperkalemia: Code(s): E87.5 - Hyperkalemia Status: Acute Assessment and Plan: Lokelma x1 in the ED Resolved, continued labs (2) GI bleed: Qualifiers: GI bleed type/associated pathology: melena Qualified Code(s): K92.1 - Melena Code(s): K92.2 - Gastrointestinal hemorrhage, unspecified Status: Acute Assessment and Plan: Protonix b.i.d. Symptomatic support, no TTP today Rectal tube with cessation of tarry stool, pt passing gas now, will discontinue rectal tube today and will follow BMs Timed H&H and AM labs, transfuse if below 7 EGD performed yesterday with no active bleeding or GI intervention needed, GI signed off today (3) Anemia: Code(s): D64.9 - Anemia, unspecified Status: Acute Assessment and Plan: See above (4) Leukocytosis: Qualifiers: Leukocytosis type: unspecified Qualified Code(s): D72.829 - Elevated white blood cell count, unspecified Code(s): D72.829 - Elevated white blood cell count, unspecified Status: Acute Assessment and Plan: X-ray no acute finding UA negative for infection Trend labs (5) Urinary retention: Code(s): R33.9 - Retention of urine, unspecified Status: Acute Assessment and Plan: Jimenez catheter (6) Seizures: Code(s): R56.9 - Unspecified convulsions Status: Acute Assessment and Plan: Chronic Continue Keppra IV due to decreased oral intake (7) CHF (congestive heart failure): Code(s): I50.9 - Heart failure, unspecified Status: Acute Assessment and Plan: Currently holding Bumex due to dehydration, PO intake limited Daily labs (8) Hypertension: Code(s): I10 - Essential (primary) hypertension Status: Acute Assessment and Plan: Holding home antihypertensives due to GI bleed and dehydration BP has been stable during admission Plan Continue to trend H/H. Assess BM after removal of rectal tube. Continue to assess PO intake. May need to have POC code status discussion with family. Medical Record Review I have reviewed the following patient records and this information was taken into consideration when formulating the assessment and plan.: previous labs Consultations Consultations: I have discussed the care of this pt with the consulting providers. Subjective Date/time seen: 05/20/25 08 Interval history: Pt sleeping peacefully in bed upon my arrival, arousable to touch and voice. Pt passing gas and stating that she needs to use the restroom. No other sx appreciable. Review of Systems Review of Systems: ROS unobtainable: Yes unobtainable due to mental status Exam Narrative: General: Appears stated age, in no acute distress HEENT: normocephalic, atraumatic. Mucous membranes tacky. EOMI, PERRLA, bilateral sclera anicteric, no conjunctival injection. Neck supple without JVD, lymphadenopathy, or bruit. Respiratory: clear bilaterally. No rales/rhonchi/wheezes. Cardiovascular: Regular rate and rhythm, normal S1-S2. No murmurs, rubs, or clicks. PMI is nondisplaced, capillary refill less than 3 second. Abdomen: Soft, round, no pulsatile masses, nondistended and nontender. No rebound, no guarding. Bowel sounds absent to all four quadrants. No high pitch or tinkling sounds, resonant to percussion. Extremities: No cyanosis, clubbing, or edema present. Pulses are palpable 2/2. Active ROM to all four extremities. Neuro: Alert and orientated x 0. PERRLA. Cranial nerves 2-12 intact without focal deficit. Skin: Warm, dry, and intact, without rash, erythema, or lesion. Psych: Cooperative, cries out if touched Rectal tube, Jimenez catheter in place Objective Data Vital Signs Vital Signs: Vital Signs - 24 hr 05/19/25 12:43 05/19/25 14:00 05/19/25 16:00 Temperature 97.9 F Pulse Rate 88 80 83 Respiratory Rate 18 17 Blood Pressure 105/67 117/59 L Pulse Oximetry 97 99 Oxygen Delivery Room Air 05/19/25 20:00 05/19/25 20:00 05/19/25 20:29 Temperature Pulse Rate 98 98 Respiratory Rate Blood Pressure Pulse Oximetry Oxygen Delivery Room Air 05/19/25 22:00 05/20/25 00:00 05/20/25 04:00 Temperature 97.8 F Pulse Rate 94 86 88 Respiratory Rate 18 Blood Pressure 143/44 H Pulse Oximetry 97 Oxygen Delivery 05/20/25 06:00 05/20/25 08:00 05/20/25 08:30 Temperature 97.8 F Pulse Rate 80 82 Respiratory Rate 18 Blood Pressure 118/52 L Pulse Oximetry 99 Oxygen Delivery Room Air Intake/Output Intake/Output: Intake & Output 05/17/25 05/18/25 05/19/25 05/20/25 23:59 23:59 23:59 23:59 Intake Total 2400 1250 872.5 Output Total 2500 1350 800 Balance -100 -100 72.5 Meds/Results Medications: Active Medications Generic Name Dose Route Start Last Admin Trade Name Freq PRN Reason Stop Dose Admin Sodium Chloride 1,000 mls @ 75 mls/hr 05/17/25 17:35 05/20/25 01:04 Normal Saline Iv IV CONT 75 mls/hr .[id number] JUNE Administration Levetiracetam 500 mg in 100 mls @ 400 mls/hr 05/19/25 10:00 05/20/25 08:23 Keppra Iv IVPB 400 mls/hr Q12HR JUNE Administration Levetiracetam 500 mg 05/17/25 23:15 05/19/25 10:18 Levetiracetam 500 Mg Tablet PO Not Given On Hold: 05/19/25 09:55 BID JUNE Metoprolol Succinate 25 mg 05/17/25 23:30 05/20/25 08:23 Metoprolol Succinate Ext Rel 25 Mg Tabcr PO 25 mg Q12HR JUNE Administration Morphine Sulfate 2 mg 05/17/25 22:11 05/20/25 10:57 Morphine Sulfate (*Crx) 4 Mg/Ml Inj IV PUSH 2 mg Q4H PRN Administration Pain Rated 7-10 Ondansetron HCl 4 mg 05/19/25 09:46 05/19/25 10:38 Ondansetron Inj 4 Mg/2 Ml Vial IV PUSH 4 mg Q6H PRN Administration Nausea And Vomiting Pantoprazole Sodium 40 mg 05/17/25 21:00 05/20/25 08:24 Pantoprazole Sodium Iv 40 Mg Vial IV PUSH 40 mg Q12HR JUNE Administration Radiology Results: ITS Impressions Chest X-Ray 05/17/25 15:33 IMPRESSION: 1: NO ACUTE CARDIOPULMONARY DISEASE. Labs Labs: Laboratory Results - last 24 hr 05/20/25 04:45 WBC 12.5 H RBC 2.53 L Hgb 7.7 L Hct 24.2 L MCV 95.7 D MCH 30.4 D MCHC 31.8 L RDW 17.4 H Plt Count 199 MPV 11.4 H Immature Gran % (Auto) 0.6 H Neut % (Auto) 70.8 Lymph % (Auto) 17.5 L [place] % (Auto) 7.5 Eos % (Auto) 3.2 Baso % (Auto) 0.4 Lymph # (Auto) 2.18 [place] # (Auto) 0.9 H Eos # (Auto) 0.4 H Baso # (Auto) 0.1 Abs Immat Gran (auto) 0.08 H Absolute Neuts (auto) 8.8 H Absolute Nucleated RBC 0.040 H Band Neutrophils % Not Reportable Nucleated RBC % 0.3 H Platelet Estimate Adequate % Immature Plt Fraction 2.7 Hypochromasia 1+ Schistocytes Occasional Sodium 139 Potassium 3.4 Chloride 111 H Carbon Dioxide 24 Anion Gap 4 BUN 21 H D Creatinine 0.89 Estim Creat Clear Calc 49 Estimated GFR 60 Glucose 100 Calcium 8.3 L Total Bilirubin 0.6 AST 17 ALT 10 Alkaline Phosphatase 64 Total Protein 5.5 L Albumin 2.9 L Quality VTE Prophylaxis VTE prophylaxis: mechanical ordered
[2025-05-21] VITALS (11 sets, daily range): BP systolic 103–151; BP diastolic 64–78; PULSE 77–88; RESP 16–20; TEMP 36.3; O2SAT 98–99
[2025-05-21] MEDS: MORPHINE SULFATE (*CRX) 4 MG/ML INJ 2 MG IV PUSH (02:45)
[2025-05-21] MEDS: SODIUM CHLORIDE 0.9% IV 1,000 ML 75 ML IV CONT (02:49)
[2025-05-21 05:04] LABS: Hematocrit 24.8 % (37.0-47.0); Hemoglobin 7.7 g/dL (12.0-15.0); Immature Granulocyte Percent A 0.6 % (0-0.5); Lymphocytes Absolute Auto 1.12 K/mm3 (0.9-3.2); Mean Corpuscular HGB Conc 31.0 g/dl (32-36); Mean Corpuscular Hemoglobin 28.9 pg (26-34); Mean Corpuscular Volume 93.2 fl (80-100); Nucleated Red Blood Cells Absolute Auto 0.000 K/mm3 (0.0-0.012); Nucleated Red Blood Cells Perc 0.0 % (0.0-0.2); Platelet Count Result 245 k/mm3 (150-375); Red Blood Count 2.66 M/mm3 (4.2-5.4); White Blood Count 11.4 K/mm3 (4.5-10.0)
[2025-05-21 05:12] LABS: Alanine Aminotransferase 11 U/L (6-35); Albumin Level 3.0 g/dL (3.5-5.1); Alkaline Phosphatase 69 U/L (38-126); Anion Gap 4 mmol/L (4-12); Aspartate Amino Transferase 19 U/L (14-36); Bilirubin,Total 0.5 mg/dL (0.2-1.3); Blood Urea Nitrogen 16 mg/dL (7-17); Calcium 8.3 mg/dL (8.4-10.2); Carbon Dioxide 24 mmol/L (22-30); Chloride 109 mmol/L (98-107); Estimated CRCL calculation 54 ml/min; Estimated Glomerular Filt Rate > 60; Glucose 109 mg/dL (65-110); Potassium 3.4 mmol/L (3.4-5.0); Sodium 137 mmol/L (137-145); Total Protein 5.8 g/dL (6.3-8.2)
[2025-05-21] MEDS: METOPROLOL SUCCINATE EXT REL 25 MG TABCR PO ×2 (09:20→21:11)
[2025-05-21] MEDS: PANTOPRAZOLE SODIUM IV 40 MG VIAL IV PUSH (09:23)
[2025-05-21] MEDS: levETIRAcetam 500MG/NACL 100ML 500 MG/100 ML BAG 400 MG IVPB (09:31)
--- NOTE | 2025-05-21 13:21 | P.PNIM_ITS ---
Assessment and Plan Assessment and Plan (1) Hyperkalemia: Code(s): E87.5 - Hyperkalemia Status: Acute Assessment and Plan: Lokelma x1 in the ED Resolved, continued labs (2) GI bleed: Qualifiers: GI bleed type/associated pathology: melena Qualified Code(s): K92.1 - Melena Code(s): K92.2 - Gastrointestinal hemorrhage, unspecified Status: Acute Assessment and Plan: Protonix b.i.d. Symptomatic support, no TTP today Rectal tube discontinued 05/20, no tarry stools since per nursing Timed H&H and AM labs, transfuse if below 7 EGD performed 04/19 with no active bleeding or GI intervention needed, GI signed off today (3) Anemia: Code(s): D64.9 - Anemia, unspecified Status: Acute Assessment and Plan: See above (4) Leukocytosis: Qualifiers: Leukocytosis type: unspecified Qualified Code(s): D72.829 - Elevated white blood cell count, unspecified Code(s): D72.829 - Elevated white blood cell count, unspecified Status: Acute Assessment and Plan: X-ray no acute finding UA negative for infection Trend labs (5) Urinary retention: Code(s): R33.9 - Retention of urine, unspecified Status: Acute Assessment and Plan: Void trial today, replace peraza if after no void in x6 hours and >200ml urine upon bladder scan, discussed with nursing (6) Seizures: Code(s): R56.9 - Unspecified convulsions Status: Acute Assessment and Plan: Chronic Continue Keppra IV due to decreased oral intake (7) CHF (congestive heart failure): Code(s): I50.9 - Heart failure, unspecified Status: Acute Assessment and Plan: Holding PO meds (Bumex) due to decreased oral intake Daily labs (8) Hypertension: Code(s): I10 - Essential (primary) hypertension Status: Acute Assessment and Plan: Holding PO meds due to decreased oral intake BP has been stable during admission Plan Pt to meet with hospice tomorrow AM at 0900 then will discharge after. Medical Record Review I have reviewed the following patient records and this information was taken into consideration when formulating the assessment and plan.: previous labs Consultations Consultations: I have discussed the care of this pt with the consulting providers. Subjective Date/time seen: 05/21/25 0995 Interval history: Pt sleeping peacefully in bed upon my arrival, arousable to touch and voice. Pt took a few bites of cookie with me but appears to still not be eating much. No other sx appreciable. Review of Systems Review of Systems: ROS unobtainable: Yes unobtainable due to mental status Exam Narrative: General: Appears stated age, in no acute distress HEENT: normocephalic, atraumatic. Mucous membranes tacky. EOMI, PERRLA, bilateral sclera anicteric, no conjunctival injection. Neck supple without JVD, lymphadenopathy, or bruit. Respiratory: clear bilaterally. No rales/rhonchi/wheezes. Cardiovascular: Regular rate and rhythm, normal S1-S2. No murmurs, rubs, or clicks. PMI is nondisplaced, capillary refill less than 3 second. Abdomen: Soft, round, no pulsatile masses, nondistended and nontender. No rebound, no guarding. Bowel sounds absent to all four quadrants. No high pitch or tinkling sounds, resonant to percussion. Extremities: No cyanosis, clubbing, or edema present. Pulses are palpable 2/2. Active ROM to all four extremities. Neuro: Alert and orientated x 0. PERRLA. Cranial nerves 2-12 intact without focal deficit. Skin: Warm, dry, and intact, without rash, erythema, or lesion. Psych: Cooperative, cries out if touched Objective Data Vital Signs Vital Signs: Vital Signs - 24 hr 05/20/25 14:00 05/20/25 16:00 05/20/25 20:00 Temperature 99.1 F Pulse Rate 68 73 88 Respiratory Rate 18 Blood Pressure 144/79 H Pulse Oximetry 96 Oxygen Delivery 05/20/25 21:02 05/20/25 21:12 05/20/25 22:00 Temperature 97.3 F L Pulse Rate 78 78 Respiratory Rate 16 Blood Pressure 111/66 Pulse Oximetry 98 Oxygen Delivery Room Air 05/21/25 00:00 05/21/25 04:00 05/21/25 06:07 Temperature 97.4 F L Pulse Rate 82 77 88 Respiratory Rate 16 Blood Pressure 103/64 Pulse Oximetry 98 Oxygen Delivery 05/21/25 08:00 05/21/25 08:00 05/21/25 12:00 Temperature Pulse Rate 88 85 80 Respiratory Rate 16 Blood Pressure Pulse Oximetry 98 Oxygen Delivery Room Air Intake/Output Intake/Output: Intake & Output 05/18/25 05/19/25 05/20/25 05/21/25 23:59 23:59 23:59 23:59 Intake Total 2400 1250 2432.5 886.3 Output Total 2500 1350 1600 1000 Balance -100 -100 832.5 -113.7 Meds/Results Medications: Active Medications Generic Name Dose Route Start Last Admin Trade Name Freq PRN Reason Stop Dose Admin Sodium Chloride 1,000 mls @ 75 mls/hr 05/17/25 17:35 05/21/25 02:49 Normal Saline Iv IV CONT 75 mls/hr .[id number] JUNE Administration Levetiracetam 500 mg in 100 mls @ 400 mls/hr 05/19/25 10:00 05/21/25 09:31 Keppra Iv IVPB 400 mls/hr Q12HR JUNE Administration Levetiracetam 500 mg 05/17/25 23:15 05/19/25 10:18 Levetiracetam 500 Mg Tablet PO Not Given On Hold: 05/19/25 09:55 BID JUNE Metoprolol Succinate 25 mg 05/17/25 23:30 05/21/25 09:20 Metoprolol Succinate Ext Rel 25 Mg Tabcr PO 25 mg Q12HR JUNE Administration Morphine Sulfate 2 mg 05/17/25 22:11 05/21/25 02:45 Morphine Sulfate (*Crx) 4 Mg/Ml Inj IV PUSH 2 mg Q4H PRN Administration Pain Rated 7-10 Ondansetron HCl 4 mg 05/19/25 09:46 05/19/25 10:38 Ondansetron Inj 4 Mg/2 Ml Vial IV PUSH 4 mg Q6H PRN Administration Nausea And Vomiting Pantoprazole Sodium 40 mg 05/17/25 21:00 05/21/25 09:23 Pantoprazole Sodium Iv 40 Mg Vial IV PUSH 40 mg Q12HR JUNE Administration Radiology Results: ITS Impressions Chest X-Ray 05/17/25 15:33 IMPRESSION: 1: NO ACUTE CARDIOPULMONARY DISEASE. Labs Labs: Laboratory Results - last 24 hr 05/21/25 04:25 WBC 11.4 H RBC 2.66 L Hgb 7.7 L Hct 24.8 L MCV 93.2 MCH 28.9 MCHC 31.0 L RDW 17.1 H Plt Count 245 MPV 9.9 Immature Gran % (Auto) 0.6 H Neut % (Auto) 77.9 H Lymph % (Auto) 9.9 L [place] % (Auto) 9.2 H Eos % (Auto) 2.1 Baso % (Auto) 0.3 Lymph # (Auto) 1.12 [place] # (Auto) 1.0 H Eos # (Auto) 0.2 Baso # (Auto) 0.0 Abs Immat Gran (auto) 0.07 H Absolute Neuts (auto) 8.9 H Absolute Nucleated RBC 0.000 Nucleated RBC % 0.0 Sodium 137 Potassium 3.4 Chloride 109 H Carbon Dioxide 24 Anion Gap 4 BUN 16 Creatinine 0.79 Estim Creat Clear Calc 54 Estimated GFR > 60 Glucose 109 Calcium 8.3 L Total Bilirubin 0.5 AST 19 ALT 11 Alkaline Phosphatase 69 Total Protein 5.8 L Albumin 3.0 L Quality VTE Prophylaxis VTE prophylaxis: mechanical ordered
[2025-05-21] MEDS: oxyCODONE HCL (*CRX) 5 MG TAB IR PO ×2 (16:02→21:11)
[2025-05-21] MEDS: OLANZapine 5 MG, WATER, STERILE FOR INJECTION 2.1 ML IM (17:16)
[2025-05-21] MEDS: PANTOPRAZOLE 40 MG TABLET PO (21:10)
[2025-05-22] VITALS: PULSE 73
[2025-05-22 04:00] VITALS: PULSE 82
[2025-05-22 05:40] LABS: Hematocrit 24.4 % (37.0-47.0); Hemoglobin 7.6 g/dL (12.0-15.0); Immature Granulocyte Percent A 0.6 % (0-0.5); Lymphocytes Absolute Auto 1.49 K/mm3 (0.9-3.2); Mean Corpuscular HGB Conc 31.1 g/dl (32-36); Mean Corpuscular Hemoglobin 28.9 pg (26-34); Mean Corpuscular Volume 92.8 fl (80-100); Nucleated Red Blood Cells Absolute Auto 0.000 K/mm3 (0.0-0.012); Nucleated Red Blood Cells Perc 0.0 % (0.0-0.2); Platelet Count Result 281 k/mm3 (150-375); Red Blood Count 2.63 M/mm3 (4.2-5.4); White Blood Count 10.7 K/mm3 (4.5-10.0)
[2025-05-22 06:00] VITALS: BP 149/72; PULSE 69; RESP 17; TEMP 37; O2SAT 98
[2025-05-22 06:08] LABS: Alanine Aminotransferase 11 U/L (6-35); Albumin Level 3.2 g/dL (3.5-5.1); Alkaline Phosphatase 84 U/L (38-126); Anion Gap 1 mmol/L (4-12); Aspartate Amino Transferase 25 U/L (14-36); Bilirubin,Total 0.6 mg/dL (0.2-1.3); Blood Urea Nitrogen 11 mg/dL (7-17); Calcium 8.6 mg/dL (8.4-10.2); Carbon Dioxide 27 mmol/L (22-30); Chloride 107 mmol/L (98-107); Estimated CRCL calculation 55 ml/min; Estimated Glomerular Filt Rate > 60; Glucose 105 mg/dL (65-110); Potassium 3.1 mmol/L (3.4-5.0); Sodium 135 mmol/L (137-145); Total Protein 6.0 g/dL (6.3-8.2)
[2025-05-22 08:00] VITALS: PULSE 87
[2025-05-22] MEDS: METOPROLOL SUCCINATE EXT REL 25 MG TABCR PO (11:03)
[2025-05-22] MEDS: PANTOPRAZOLE 40 MG TABLET PO (11:04)
--- NOTE | 2025-05-22 14:04 | P.DS_ITS ---
DS: Admitting Diagnosis Discharge Date 05/22/2025 Admitting Diagnosis GI bleed DS: Discharge Diagnosis Discharge Diagnosis (1) Hyperkalemia: Code(s): E87.5 - Hyperkalemia Status: Acute Assessment and Plan: Lokelma x1 in the ED Resolved, continued labs (2) GI bleed: Qualifiers: GI bleed type/associated pathology: melena Qualified Code(s): K92.1 - Melena Code(s): K92.2 - Gastrointestinal hemorrhage, unspecified Status: Acute Assessment and Plan: Protonix b.i.d. Symptomatic support, no TTP today Rectal tube discontinued 05/20, no tarry stools since per nursing Timed H&H and AM labs, transfuse if below 7 EGD performed 04/19 with no active bleeding or GI intervention needed, GI signed off (3) Anemia: Code(s): D64.9 - Anemia, unspecified Status: Acute Assessment and Plan: See above (4) Leukocytosis: Qualifiers: Leukocytosis type: unspecified Qualified Code(s): D72.829 - Elevated white blood cell count, unspecified Code(s): D72.829 - Elevated white blood cell count, unspecified Status: Acute Assessment and Plan: X-ray no acute finding UA negative for infection Trend labs (5) Urinary retention: Code(s): R33.9 - Retention of urine, unspecified Status: Acute Assessment and Plan: Resolved Jimenez removed, void trial successful (6) Seizures: Code(s): R56.9 - Unspecified convulsions Status: Acute Assessment and Plan: Chronic, keppra (7) CHF (congestive heart failure): Code(s): I50.9 - Heart failure, unspecified Status: Acute Assessment and Plan: Holding PO meds (Bumex) due to decreased oral intake. Daily labs (8) Hypertension: Code(s): I10 - Essential (primary) hypertension Status: Acute Assessment and Plan: Holding PO meds due to decreased oral intake BP has been stable during admission Plan Pt to discharge back to [facility] with hospice. DS: Summary Hospital Course Reason for hospitalization: GI bleed Hospital Course: The patient is an 89-year-old female with advanced dementia who was admitted from a memory care facility for evaluation of coffee-ground emesis and melena. On presentation, she was hemodynamically labile with evidence of acute blood loss anemia, leukocytosis, and an elevated BUN consistent with an upper gastrointestinal bleed. Initial hemoglobin was 9.0 g/dL and trended down to a [place] of approximately 7.0 g/dL during hospitalization. Early in the admission, goals of care were extensively discussed with family given the patient?s advanced dementia and DNR/DNI status. Family initially declined invasive interventions, blood transfusion, and endoscopy, favoring comfort-focused care if the patient clinically declined. The patient was managed conservatively with IV fluids, IV proton pump inhibitor therapy, bowel rest, and close laboratory and hemodynamic monitoring. NSAIDs and aspirin were discontinued. She developed transient hyperkalemia and dehydration, both of which resolved with medical management and supportive care. Given continued hemoglobin decline, further discussions with family resulted in agreement to proceed with blood transfusion and diagnostic endoscopy. Gastroenterology was consulted, and EGD demonstrated ulcerative gastritis and non-bleeding gastric ulcers without evidence of active hemorrhage or need for endoscopic intervention. Following this, hemoglobin stabilized, and there were no further episodes of hematemesis or melena. The rectal tube was discontinued, and no recurrent bleeding was observed. Leukocytosis was monitored and felt to be reactive, with no infectious source identified on chest imaging or urinalysis. Urinary retention resolved after temporary Jimenez catheterization. Home antihypertensive and diuretic medications were held due to decreased oral intake and relative hypotension, while seizure prophylaxis was maintained during admission and later discontinued at discharge in alignment with hospice goals. Throughout the hospitalization, the patient remained significantly below her cognitive and functional baseline with poor oral intake and ongoing global decline. Given resolution of active GI bleeding, lack of further interventional needs, and the patient?s advanced dementia with poor overall prognosis, the family elected for hospice care. The patient was discharged back to her memory care facility with hospice services in place for comfort-focused management. Status at Discharge Overall status at discharge: patient is not back to baseline Time Spent with Patient Time attestation: Total time spent providing and/or coordinating discharge services: Time spent: Greater than 30 minutes Exam Narrative: General: Appears stated age, in no acute distress HEENT: normocephalic, atraumatic. Mucous membranes tacky. EOMI, PERRLA, bilateral sclera anicteric, no conjunctival injection. Neck supple without JVD, lymphadenopathy, or bruit. Respiratory: clear bilaterally. No rales/rhonchi/wheezes. Cardiovascular: Regular rate and rhythm, normal S1-S2. No murmurs, rubs, or clicks. PMI is nondisplaced, capillary refill less than 3 second. Abdomen: Soft, round, no pulsatile masses, nondistended and nontender. No rebound, no guarding. Bowel sounds absent to all four quadrants. No high pitch or tinkling sounds, resonant to percussion. Extremities: No cyanosis, clubbing, or edema present. Pulses are palpable 2/2. Active ROM to all four extremities. Neuro: Alert and orientated x 0. PERRLA. Cranial nerves 2-12 intact without focal deficit. Skin: Warm, dry, and intact, without rash, erythema, or lesion. Psych: Cries out if touched, anxious DS: Data Data Completed and Pending Completed studies during hospitalization: Labs, urine, imaging Pending studies at discharge: Pending at discharge 05/19/25 12:22 Surgical [PTH] Routine Labs on day of discharge: Labs from last 24 hours 05/22/25 04:42 WBC 10.7 H RBC 2.63 L Hgb 7.6 L Hct 24.4 L MCV 92.8 MCH 28.9 MCHC 31.1 L RDW 16.8 H Plt Count 281 MPV 9.7 Immature Gran % (Auto) 0.6 H Neut % (Auto) 72.0 Lymph % (Auto) 14.0 L [place] % (Auto) 9.9 H Eos % (Auto) 3.1 Baso % (Auto) 0.4 Lymph # (Auto) 1.49 [place] # (Auto) 1.1 H Eos # (Auto) 0.3 Baso # (Auto) 0.0 Abs Immat Gran (auto) 0.06 H Absolute Neuts (auto) 7.7 H Absolute Nucleated RBC 0.000 Nucleated RBC % 0.0 Sodium 135 L Potassium 3.1 L Chloride 107 Carbon Dioxide 27 Anion Gap 1 L BUN 11 D Creatinine 0.78 Estim Creat Clear Calc 55 Estimated GFR > 60 Glucose 105 Calcium 8.6 Total Bilirubin 0.6 AST 25 ALT 11 Alkaline Phosphatase 84 Total Protein 6.0 L Albumin 3.2 L Discharge Plan Discharge Attending physician on discharge: Gaurav Del Real Consulting providers: Erika Black Discharging Clinician: Erika Black Anticipated Discharge Date/Time: 05/22/25 16:00 Patient Disposition: Hospice - Home Activity: as tolerated Diet: as tolerated Discharge Instructions: Discharge Instructions ? GI Bleed (Resolved) / Hospice Transition Hospital Course?You were admitted for a gastrointestinal (GI) bleed. An upper endoscopy (EGD) showed?no active bleeding, and the bleeding has resolved. Given ongoing?generalized decline and decreased oral intake, the decision has been made to discharge you?home with hospice services?for comfort-focused care. Medications * Continue medications as reviewed at discharge and follow-up with the hospice team for further instruction. * Hospice will assist with medication management and symptom control. * Avoid NSAIDs (ibuprofen, naproxen) unless specifically directed. Diet * Eat and drink?as tolerated, focusing on comfort and preference. * Small, frequent sips or bites are acceptable. * No forced intake. Activity * Activity as tolerated with assistance as needed. * Fall precautions per memory care unit protocols. What to Expect / When to Notify Hospice * Dark or bloody stools, vomiting blood, or coffee-ground material. * Increased weakness, dizziness, or fatigue. * Abdominal pain, nausea, or vomiting. * Any discomfort, anxiety, or symptoms affecting comfort. Care Coordination * You will return to your?memory care unit?with?hospice services?in place. * Hospice will be the primary point of contact for medical needs and symptom management. * Routine outpatient GI follow-up is?not required?unless hospice recommends. Goals of Care * Focus on?comfort, dignity, and quality of life. * Treatment decisions will prioritize symptom relief rather than hospitalization unless requested by family/hospice. Emergency Care * In urgent situations,?contact hospice first. They are available 17/12 and will guide next steps. Please contact hospice or the memory care nursing staff with any questions or concerns. Patient Instructions: Hospice Care (GEN) Patient Language: Bahamian Stand Alone Forms: General Discharge Information Follow-up/Referrals: León Sawyer MD [Primary Care Provider, Family Practice] - 2 Weeks Discharge Medications: New lorazepam [Lorazepam Intensol] 2 mg/mL concentrate 1 mg PO Q4H PRN (Reason: agitation) Qty: 30 0RF Continued meclizine 12.5 mg tablet 12.5 mg PO BID acetaminophen [8 Hour Pain Reliever] 650 mg tablet extended release 650 mg PO BID calcium carbonate [Calcium 600] 600 mg calcium (1,500 mg) tablet 600 mg PO BID ondansetron 4 mg tablet,disintegrating 4 mg PO Q6H PRN (Reason: nausea and vomiting) loperamide [Anti-Diarrheal (loperamide)] 2 mg tablet 2 mg PO Q3H PRN (Reason: loose stool) nystatin [Nystop] 100,000 unit/gram powder 1 applic topical BID acetaminophen 325 mg capsule 650 mg PO Q6H PRN (Reason: pain) Discontinued cyanocobalamin (vitamin B-12) [B-12 DOTS] 500 mcg tablet 500 mcg PO DAILY potassium chloride 10 mEq capsule, extended release 20 meq PO DAILY aspirin 81 mg capsule 81 mg PO DAILY meloxicam 15 mg tablet 15 mg PO DAILY simvastatin 10 mg tablet 10 mg PO HS levetiracetam [Keppra] 500 mg tablet 500 mg PO BID amlodipine 5 mg tablet 5 mg PO DAILY ergocalciferol (vitamin D2) 1,250 mcg (50,000 unit) capsule 1,250 mcg PO WEEKLY cetirizine [All Day Allergy (cetirizine)] 10 mg tablet 10 mg PO DAILY metoprolol succinate 25 mg tablet extended release 24 hr 25 mg PO BID bumetanide 0.5 mg tablet 0.5 mg PO DAILY Date of admission: 05/18/25 10:35 Primary Care Provider: León Sawyer Admitting Provider: Bernardo Carrizales Attending physician on admission: Bernardo Carrizales Condition: Stable Quality VTE Prophylaxis VTE prophylaxis: mechanical ordered Hospitalist MIPS Heart Failure (Exclusion) Patient has history of Heart Transplant or Left Ventricular Assistive Device?: No IF YES, STOP HERE Heart Failure (Qualifier) Patient has current or prior documentation of LVEF less than or equal to 40%, or mod/servere depressed LVSF?: No IF NO, STOP HERE
== END 2025-05-22 16:10 | disposition hospice, home (50) | DRG 378 ==
LOC: ANHED 13:14 → ANH3MEDSUR 15:56 → ANH2MED 17:07
PROVIDERS: Internal Medicine Gastroenterology; Nurse Practitioner Gerontology; Admitting Provider Internal Medicine; Emergency Provider Emergency Medicine; PCP Family Medicine
PROC: 0DJ08ZZ Inspection of Upper Intestinal Tract, Via Natural or Artificial Opening Endoscopic (ICD-10-PCS; principal; 2025-05-19 13:00)
DX: K29.01 Acute gastritis with bleeding (principal); D62 Acute posthemorrhagic anemia; E87.5 Hyperkalemia; K44.9 Diaphragmatic hernia without obstruction or gangrene; D72.829 Elevated white blood cell count, unspecified; R33.9 Retention of urine, unspecified; I11.0 Hypertensive heart disease with heart failure; I50.9 Heart failure, unspecified; E86.0 Dehydration; G40.909 Epilepsy, unspecified, not intractable, without status epilepticus; F03.90 Unspecified dementia, unspecified severity, without behavioral disturbance, psychotic disturbance, mood disturbance, and anxiety; E66.9 Obesity, unspecified; Z68.38 Body mass index [BMI] 38.0-38.9, adult; Z51.5 Encounter for palliative care
CPT/HCPCS: 36415; 36430; 71045; 80053; 81003; 85014; 85018; 85025; 85027; 85055; 85610; 85730; 86850; 86900; 86901; 86923; 88305; 88342; 96374; 96375; 96376; 99285; A9270; G0378; J1953; J2270; J2359; J2405; J2470; J2704; J7030; J7040; J7050; J7120; P9016